=== PATIENT | male | born 1940 | race Caucasian/White ===

== ENCOUNTER 2018-08-03 09:18 | Inpatient (IN) ==
[2018-08-03] MEDS ORDERED: TORADOL IM ONE (10:31)
[2018-08-03] MEDS ORDERED: ZOFRAN IM ONE (10:31)
--- NOTE | 2018-08-03 11:13 | Diag Imaging Result Doc PS360 ---
CHEST-PORTABLE - 08/03/2018 INDICATION: A FIB,RVR COMPARISON: None FINDINGS: There is mild cardiomegaly. Pulmonary vascularity is top normal. There is some trace hazy atelectasis or infiltrate at the left lower lobe. Otherwise no substantial infiltrates. No sign of pulmonary edema. IMPRESSION: Cardiomegaly. Trace patchy atelectasis or infiltrate in the left lower lobe. Electronically signed by Gaurang Hurd 08/03/2018 11:11 AM
[2018-08-03 11:19] LABS: BASO# 0.03 X1000 (0.0-0.2); BASO% 0.1 % (0.0-0.8); HEMOGLOBIN 12.4 g/dL (14.0-18.0); IMM GRAN% 0.4 % (0.0-0.5); LYMPH# 0.91 X1000 (1.2-3.4); LYMPH% 3.6 % (20.5-51.1); MCH 30.9 PG (27-31); MCHC 32.6 g/dL (33-37); MCV 94.8 FL (81-99); MONO# 2.09 X1000 (0.11-0.59); MONO% 8.3 % (1.7-9.3); MPV 8.8 FL (7.4-10.4); NEUT# 22.12 X1000 (1.4-6.5); NEUT% 87.6 % (42.2-75.2); PLT 336 X1000 (130-400); RBC 4.01 XMIL (4.7-6.1); RDW 14.5 % (11.5-14.5); WBC 25.25 X1000 (4.8-10.8)
[2018-08-03 11:50] LABS: AGAP 5; BUN 25 mg/dL (8-22); CALCIUM 9.8 mg/dL (8.8-10.2); CHLORIDE 99 mmol/L (98-107); COSMO 279; CREATININE 0.8 mg/dL (0.7-1.2); ESTIMATED GFR > 60; GLUCOSE 111 mg/dL (70-104); POTASSIUM 4.3 mmol/L (3.5-5.1); SODIUM 137 mmol/L (136-145); TCO2 33 mmol/L (25-35)
--- NOTE | 2018-08-03 11:53 | EKG Report ---
Test Performed on : 08/03/2018 11:33:56 AM Test Reason : AFIB WITH RVR Blood Pressure : / mmHG Vent. Rate : 137 BPM Atrial Rate : 159 BPM P-R Int : 000 ms QRS Dur : 122 ms QT Int : 316 ms P-R-T Axes : 000 -49 106 degrees QTc Int : 477 ms Atrial fibrillation. with rapid ventricular response. Left axis deviation Possible Lateral infarct , age undetermined Inferior infarct , age undetermined Abnormal ECG No previous ECGs available Unconfirmed Result
[2018-08-03] MEDS ORDERED: ZITHROMAX 500 MG/NS 500 MG/250 ML IVPB IV ONE (11:56)
[2018-08-03] MEDS ORDERED: NS 1,000 ML IV ONE ×3 (11:56→22:30)
[2018-08-03] MEDS ORDERED: ROCEPHIN 1 GM in NS 50 ML IV ONE (11:56)
[2018-08-03] MEDS ORDERED: NS 1,000 ML ONE (11:57)
[2018-08-03] MEDS ORDERED: TYLENOL PO ONE (12:01)
[2018-08-03 12:06] LABS: ALB/GLOB RATIO 1.7; ALBUMIN 3.8 g/dL (3.5-5.0); DIRECT BILIRUBIN 0.2 mg/dL (0.00-0.20); TOTAL BILIRUBIN 0.85 mg/dL (0.20-1.00)
[2018-08-03] MEDS ORDERED: ZOFRAN IV PRN (12:41)
--- NOTE | 2018-08-03 12:55 | PROVIDER DOCUMENTATION ---
This chart was entered by Sabi Randolph Scribe, acting as scribe for Hamilton Llanes MD. HPI-Musculoskeletal Pain/Inj - GENERAL Chief Complaint: Back Pain Stated Complaint: back pain Time Seen by Provider: 08/03/18 10:30 Source: patient - HX OF PRESENT ILLNESS-MUSKULOSKELTAL Nature of Presenting Problem: Patient is a 78 year old male who presents to the ED via EMS with right lower back pain. Patient states back pain started last night. Patient states chronic left lower back pain. Patient states he is currently in physical therapy for chronic left lower back pain. Patient denies recent injury. Quality of Pain: reports: aching Severity in ED: moderate Onset/Duration: last night Timing: still present Modifying Factors: improves with: nothing Any recent injury?: No Locality of Occurance: Home Similar Symptoms Previously?: Yes Recently seen or treated by another doctor?: No - BACK & NECK PAIN/INJURY Back/Neck Pain Location: reports: lumbar spine (right) Back/Neck Pain Radiation: denies: headache, shoulders, arm(s), Buttocks, Upper Legs, Lower Legs, Feet Context / Method of Injury: reports: unknown History of Chronic Neck or Back Pain?: Yes Review of Systems - Adult - REVIEW OF SYSTEMS - ADULT Constitutional: reports: no symptoms reported Eyes: reports: no symptoms reported Ears, Nose, Mouth & Throat: reports: no symptoms reported Cardiovascular: reports: no symptoms reported Respiratory: reports: no symptoms reported Gastrointestinal: reports: no symptoms reported Genitourinary: reports: no symptoms reported Musculoskeletal: reports: back pain (right lower). denies: joint pain, neck pain Integumentary: reports: no symptoms reported Neurological: reports: no symptoms reported Psychiatric: reports: no symptoms reported Endocrine: reports: no symptoms reported Hematologic/Lymphatic: reports: no symptoms reported Allergic/Immunologic: reports: no symptoms reported All Other Systems: Reviewed and Negative Past History - Adult - PAST MEDICAL HISTORY-ADULT Review of Records: reports: Nursing Assessment Review, Medications Reviewed, Social history reviewed & non-contributory. Major Childhood Illnesses: reports: denies history Cardiovascular: reports: A-Fib, HTN Respiratory: reports: denies history Gastrointestinal: reports: denies history Obstetrical/Gynecological: reports: denies history Genitourinary: reports: prostate cancer Musculoskeletal: reports: denies history Neurological: reports: denies history Psychiatric: reports: denies history Endocrine/Immune: reports: denies history Other Conditions: reports: denies history - PRIOR SURGERIES/PROCEDURES Surgical/Procedure History: reports: reviewed, not pertinent - IMMUNIZATION STATUS Childhood Immunizations: See Nurse Assessment Flu Vaccine: See Nurse Assessment - FAMILY HISTORY Family History: reviewed, not pertinent - SOCIAL HISTORY Smoking: denies Substance Use: alcohol Alcohol Use Frequency: occasionally Living Situation: family Physical Exam-Injury Related - Physical Exam-Injury Related Initial Vital Signs Reviewed: Yes General Appearance: alert, mild distress Head, Ears, Nose, Mouth & Throat: normal ENT inspection Neck: non-tender, normal inspection Respiratory: chest non-tender, lungs clear, normal breath sounds Cardiovascular: normal peripheral pulses, tachycardia, irregularly irregular Abdominal Exam: normal bowel sounds, non tender, soft Back Exam: no vertebral tenderness, other (right lumbar paraspinal muscle tenderness) Extremity: other (bilateral SLR within normal range. difficulty lifting left leg due to pain. unable to left right leg on request due to pain. flexion and extension within normal range bilaterally.) Integumentary: normal color, warm/dry Neurologic: grossly normal Psych/Mental Status: normal mood/affect, oriented x 3 Progress - PLAN OF CARE/RESULTS Progress/Plan/Lab Results: Vital Signs - 8 hr 08/03/18 09:26 08/03/18 11:23 Temperature 99.2 F 99 F Pulse Rate 116 H 144 H Respiratory Rate 18 20 Blood Pressure 108/68 89/64 O2 Sat by Pulse Oximetry 96 93 L Laboratory Results - last 24 hr 08/03/18 08/03/18 08/03/18 11:01 11:01 11:01 WBC 25.25 H RBC 4.01 L Hgb 12.4 L Hct 38.0 L MCV 94.8 MCH 30.9 MCHC 32.6 L RDW Std Deviation 14.5 Plt Count 336 MPV 8.8 Immature Gran % (Auto) 0.4 Neut % (Auto) 87.6 H Lymph % (Auto) 3.6 L Stark % (Auto) 8.3 Eos % (Auto) 0.0 Baso % (Auto) 0.1 Immature Gran # (Auto) 0.10 H Neut # (Auto) 22.12 H Lymph # (Auto) 0.91 L Stark # (Auto) 2.09 H Eos # (Auto) 0.00 Baso # (Auto) 0.03 Sodium 137 Potassium 4.3 Chloride 99 Carbon Dioxide 33 Anion Gap 5 BUN 25 H Creatinine 0.8 Estimated GFR/1.73 m2 > 60 BUN/Creatinine Ratio 31 Glucose 111 H Calculated Osmolality 279 Calcium 9.8 Total Bilirubin Direct Bilirubin AST ALT Alkaline Phosphatase Troponin T Fwh-A-Sgvxjzlqgel Pept Total Protein Albumin Globulin Albumin/Globulin Ratio Plasma Lactate Free T4 0.95 08/03/18 08/03/18 08/03/18 11:01 11:01 11:01 WBC RBC Hgb Hct MCV MCH MCHC RDW Std Deviation Plt Count MPV Immature Gran % (Auto) Neut % (Auto) Lymph % (Auto) Stark % (Auto) Eos % (Auto) Baso % (Auto) Immature Gran # (Auto) Neut # (Auto) Lymph # (Auto) Stark # (Auto) Eos # (Auto) Baso # (Auto) Sodium Potassium Chloride Carbon Dioxide Anion Gap BUN Creatinine Estimated GFR/1.73 m2 BUN/Creatinine Ratio Glucose Calculated Osmolality Calcium Total Bilirubin 0.85 Direct Bilirubin 0.20 AST 23 ALT 15 Alkaline Phosphatase 69 Troponin T < 0.010 Qcc-Z-Ofvuyvrnytf Pept 2805 H Total Protein 6.0 L Albumin 3.8 Globulin 2.2 Albumin/Globulin Ratio 1.7 Plasma Lactate Free T4 08/03/18 11:50 WBC RBC Hgb Hct MCV MCH MCHC RDW Std Deviation Plt Count MPV Immature Gran % (Auto) Neut % (Auto) Lymph % (Auto) Stark % (Auto) Eos % (Auto) Baso % (Auto) Immature Gran # (Auto) Neut # (Auto) Lymph # (Auto) Stark # (Auto) Eos # (Auto) Baso # (Auto) Sodium Potassium Chloride Carbon Dioxide Anion Gap BUN Creatinine Estimated GFR/1.73 m2 BUN/Creatinine Ratio Glucose Calculated Osmolality Calcium Total Bilirubin Direct Bilirubin AST ALT Alkaline Phosphatase Troponin T Rle-P-Ibimwfmirdn Pept Total Protein Albumin Globulin Albumin/Globulin Ratio Plasma Lactate 0.9 Free T4 Orders Category Date Time Status Admit - [facility] Routine AdmDCTranf 08/03/18 12:41 Active Activity - Bed Rest with BRP ORDERED Care 08/03/18 12:41 Active Cardiac Monitoring DIRECTED Care 08/03/18 10:50 Completed Cardiac Monitoring DIRECTED Care 08/03/18 11:34 Completed Cardiac Monitoring DIRECTED Care 08/03/18 12:41 Active IV Insertion ORDERED Care 08/03/18 11:34 Completed IV Insertion ORDERED Care 08/03/18 12:41 Active Neurological Check Q4H Care 08/03/18 12:41 Active Notify MD of + Sepsis Screen NOW Care 08/03/18 11:34 Completed Notify MD of + Sepsis Screen NOW Care 08/03/18 12:41 Active Notify Physician As Ordered Care 08/03/18 11:34 Completed Notify Physician As Ordered Care 08/03/18 12:41 Active Saline Loc DIRECTED Care 08/03/18 12:41 Active Saline Loc NOW Care 08/03/18 10:50 Completed Vital Signs Order ROUTINE Care 08/03/18 12:41 Active Clear Liquid Diet Diet 08/03/18 12:42 Active CHEST-PORTABLE [RAD] Stat Exams 08/03/18 10:51 Completed BLOOD CULTURE [BLDCUL] Stat Lab 08/03/18 11:50 Received BLOOD CULTURE [BLDCUL] Stat Lab 08/03/18 12:41 Uncollected BMP [BASIC METABOLIC PANEL] [CHEM] Stat Lab 08/03/18 11:01 Completed CBC WITH DIFF [HEME] Stat Lab 08/03/18 12:41 Uncollected CBC WITH ELECTRONIC DIFF [HEME] Stat Lab 08/03/18 11:01 Completed CK PROFILE [SP CHEM] Stat Lab 08/03/18 12:41 Uncollected COMPREHENSIVE METABOLIC PANEL [CHEM] Stat Lab 08/03/18 12:41 Uncollected FREE T4 Stat Lab 08/03/18 11:01 Completed HEPATIC FUNCTION [CHEM] Stat Lab 08/03/18 11:01 Completed LACTATE, PLASMA [CHEM] Lab 08/03/18 11:50 Completed LACTATE, PLASMA [CHEM] Lab 08/03/18 12:41 Uncollected LACTATE, PLASMA [CHEM] Lab 08/03/18 14:45 Uncollected LACTATE, PLASMA [CHEM] Lab 08/03/18 15:41 Uncollected LACTATE, PLASMA [CHEM] Lab 08/03/18 17:45 Uncollected LACTATE, PLASMA [CHEM] Lab 08/03/18 18:41 Uncollected PRO B-NATRIURETIC PEPTIDE Stat Lab 08/03/18 11:01 Completed PROTIME WITH INR [COAG] Stat Lab 08/03/18 12:41 Uncollected PTT [COAG] Stat Lab 08/03/18 12:41 Uncollected TROPONIN T Stat Lab 08/03/18 11:01 Completed TROPONIN T Stat Lab 08/03/18 12:41 Uncollected URINALYSIS W/POSS RFLX CULT [URINALYSIS] Stat Lab 08/03/18 11:47 Ordered 0.9% Sodium Chloride Inj [Ns] 1,000 ml Med 08/03/18 11:57 Discontinued .ROUTE As Directed 0.9% Sodium Chloride Inj [Ns] 1,000 ml Med 08/03/18 12:41 Active IV 150 mls/hr 0.9% Sodium Chloride Inj [Ns] 1,000 ml Med 08/03/18 11:56 Active IV 999 mls/hr Acetaminophen [Tylenol] Med 08/03/18 12:01 Discontinued 500 mg PO NOW ONE Azithromycin 500 mg/Ns [Zithromax 500 mg/Ns] Med 08/03/18 11:56 Discontinued 500 mg in 250 ml IV NOW CefTRIAXONE [Rocephin] 1 gm Med 08/03/18 11:56 Discontinued 0.9% Sodium Chloride Inj [Ns] 50 ml IV NOW Ketorolac [Toradol] Med 08/03/18 10:31 Discontinued 30 mg IM NOW ONE Morphine Med 08/03/18 12:41 Active 2 mg IV Q2H PRN PRN Ondansetron [Zofran] Med 08/03/18 10:31 Discontinued 4 mg IM NOW ONE Ondansetron [Zofran] Med 08/03/18 12:41 Active 4 mg IV Q4H PRN PRN Oxygen Device Stat Oth 08/03/18 11:34 Active Oxygen Device Stat Oth 08/03/18 12:41 Active EKG [EKG] Stat Ther 08/03/18 11:26 Draft Transfer/Admit Order [TRANSFER] Routine Transfer 08/03/18 12:04 Completed Result Diagrams: 08/03/18 11:01 08/03/18 11:01 - REASSESSMENT Reassessment #1 Time Reassessed: 11:54 Status: unchanged (wbc 25K, POSSIBLE LEFT INFILTRATE. FAMILY TELLS ME PT IS AT HIS MENTAL /SPEECH BASELINE. BACK PAIN BETTER, NO MENINGISMUS.) Reassessment #2 Time Reassessed: 12:00 Status: unchanged (LIKLEY PNEUMONIA AND SEPSIS. FLUIDS AND ANTIBIOTICS ORDERED. ICU OR CCU DISCUSSED ADMISSION WITH DR ORTEGA.) - EKG 1 Time of EKG reading by physician:: 11:33 EKG Read and Signed by:: Hamilton Llanes EKG Interpretation (*Must complete 3 of following elements*): Abnormal ( inferior infarct, age undetermined) Rate: 137 Rhythm: atrial fibrillation with rapid ventricular response [place]: left Comments: possible lateral infarct, age undetermined; - XRAY 1 XRAY Study: Chest Impression: See EMR Report ( CHEST-PORTABLE - 08/03/2018 INDICATION: A FIB,RVR COMPARISON: None FINDINGS: There is mild cardiomegaly. Pulmonary vascularity is top normal. There is some trace hazy atelectasis or infiltrate at the left lower lobe. Otherwise no substantial infiltrates. No sign of pulmonary edema. IMPRESSION: Cardiomegaly. Trace patchy atelectasis or infiltrate in the left lower lobe. Electronically signed by Gaurang Hurd 11:11 AM 08/03/18 1111 Interpreting Physician: Gaurang Hurd MD Dictated Date/Time: 08/03/18 1110 cc: Hamilton Llanes MD; Rodrigo Welsh MD) - CONSULTS/PCP/HOSPITALIST Notification #1 *Consult/PCP/Hospitalist*: Dr. Welsh Time Discussed: 10:36 Reason/Comments: Dr. Llanes consulted with Dr. Welsh about patient. Departure - Departure Date of Disposition Decision: 08/03/18 Time of Disposition Decision: 11:55 DIAGNOSIS: Atrial fibrillation with RVR, Pneumonia, Sepsis, Back pain Disposition: ADMITTED INPATIENT 09 Certified Medical Emergency: Emergent Condition: Fair - Critical Care Note This patient required my direct & personal management of CC.: Yes Total Time (mins): 50 Critical Care Statement: This patient required my direct personal management to treat or rule out processes, the absence of which, could potentiallly result in sudden, clinically significant life or limb threatening deterioration. Attestation - Physician/ ANA LUISA Attestation Patient care was provided by Advanced Practice Provider:: No The physician spent face to face time with patient:: Yes Advanced Practice Provider documentation review:: Supervising physician onsite and consulted in the evaluation and care of this patient. The physician did have a face to face encounter with the patient. This chart was documented by the indicated scribe, (Agustín,Sabi, Scribe) and accurately reflects the services I performed and decisions made by me, Hamilton Llanes MD, as attested by the provider's signature.
[2018-08-03] MEDS: MORPHINE IV PRN ×2 (15:03→20:49)
--- NOTE | 2018-08-03 15:07 | Diag Imaging Result Doc PS360 ---
EXAM: CT THORAX/ABD/PELVIS W/O CON 08/03/2018 HISTORY: Leukocytosis/ possible pneumonia/ lower pelvic mirella TECHNIQUE: This exam was performed using automated exposure control, adjustment of mA or kV according to patient size, and/or use of iterative reconstruction technique. COMMENT: There are calcified and noncalcified pleural plaques in the apices. There are small bilateral pleural effusions. There is cardiomegaly with marked enlargement of the right and left atria. There are calcified nodes in the right hilum. There is coronary atherosclerosis. There is atelectasis versus pneumonia in the left lower lobe. There are some spondylotic changes in the thoracic spine. ABDOMEN: The spleen is not enlarged. The adrenal glands are not enlarged. There are no apparent gallstones. Liver is grossly normal in appearance. There is some stool throughout the colon. There is a 2 to 3 mm calculus in the lower pole the right kidney. There is a cyst in the right kidney. There is no evidence of hydronephrosis. There is no evidence of bowel obstruction. Pelvis: There is no evidence of appendicitis. The urinary bladder is not distended. There is no evidence of free fluid. There is a fairly large amount of gas in the rectum. There are degenerative facet changes at L4-5 and L5-S1. No evidence of acute bony abnormality is present. IMPRESSION: Left lower lobe atelectasis versus pneumonia. Small bilateral pleural effusions. Constipation. Electronically signed by John Bradshaw 08/03/2018 3:05 PM
[2018-08-03 18:00] LABS: URINE SOURCE CLEAN CATCH
[2018-08-03 18:05] LABS: BILIRUBIN URINE NEGATIVE (NEGATIVE); BLOOD URINE NEGATIVE (NEGATIVE); COLOR YELLOW; GLUCOSE URINE NEGATIVE (NEGATIVE); KETONE URINE NEGATIVE (NEGATIVE); LEUKOCYTES URINE NEGATIVE (NEGATIVE); NITRITE URINE NEGATIVE (NEGATIVE); PH URINE 6.5; PROTEIN URINE 30 mg/dL (NEGATIVE); SP GRAVITY URINE 1.028; TURBIDITY URINE CLEAR (CLEAR); UR EPITHELIAL CELLS <10 /HPF (<10); URINE BACTERIA NEGATIVE /HPF; URINE RBC <10 /HPF (<10); URINE WBC <10 /HPF (<10); UROBILINOGEN URINE NORMAL (NORMAL)
[2018-08-03] MEDS ORDERED: TYLENOL PO PRN (20:13)
[2018-08-03] MEDS ORDERED: NS NEB INH SCH (22:00)
[2018-08-03] MEDS ORDERED: ROCEPHIN 1 GM in NS 50 ML IV SCH (22:00)
[2018-08-03] MEDS ORDERED: LEVAQUIN 500 MG/D5W 500 MG/100 ML IVPB IV SCH (22:00)
[2018-08-03] MEDS: NS 1,000 ML IV SCH (22:04)
[2018-08-03] MEDS: ELIQUIS PO SCH (22:04)
[2018-08-03] MEDS: ATROVENT NEB INH SCH (22:43)
[2018-08-03] MEDS: XOPENEX NEB INH SCH (22:43)
[2018-08-03] MEDS ORDERED: VANCOMYCIN IV PER PHARMACY MISC SCH (23:30)
[2018-08-04] MEDS: ZOSYN 3.375 GM in NS 50 ML IV SCH ×3 (00:18→11:36)
[2018-08-04] MEDS ORDERED: VANCOMYCIN 1,600 MG in NS 250 ML IV ONE (01:00)
--- NOTE | 2018-08-04 02:51 | HISTORY AND PHYSICAL ---
PRIMARY CARE PHYSICIAN: Dr. Rodrigo Welsh. CHIEF COMPLAINT: Intractable low back pain. HISTORY OF PRESENT ILLNESS: A 78-year-old white male with a complicated past medical history, presents for evaluation of above-mentioned symptoms. Pertinent history of present illness began several months ago. At that time, patient developed increasing back pain. Full evaluation including MRI investigation and neurosurgical consultation has been pursued. The patient currently is undergoing physical therapy. Lumbar spine surgery has been considered. The patient states yesterday, he was doing reasonably well. Yesterday evening, however, he developed acute onset intractable right low back pain. Patient ultimately achieved comfort resting in a chair. This morning, he awoke unable to ambulate. The patient was able to crawl to the phone to contact his sister. Upon contacting her, EMS was called. The patient was taken to the emergency department for further evaluation and management. Upon arrival, white blood cell count was noted to be grossly elevated at 25.25. Chest x-ray was performed suggesting an underlying pneumonia. EKG/telemetry suggested atrial fibrillation with rapid ventricular response. Patient was started on IV antibiotics and IV fluids. The patient will be admitted to the hospital for full evaluation and management of each of these conditions. Of note, patient denies fevers, chills, nausea, vomiting, shortness of breath, chest pain, cough, congestion, dysuria, hematuria, pyuria, abdominal pain, and change in bowel movements. PAST MEDICAL HISTORY: 1. Abnormal skin examination with multiple actinic keratoses, seborrheic keratoses, dermatitis, and history of squamous cell carcinoma. 2. Hypertension. 3. History of a right inguinal hernia. 4. Hypothyroidism. 5. Chronic anticoagulation secondary to atrial fibrillation. 6. Low back pain. 7. History of prostate cancer status post prostatectomy in October 2010. 8. Osteoarthritis. 9. Atrial fibrillation. 10. History of colonic polyps. CURRENT MEDICATIONS: 1. Biotin 1000 mcg twice weekly. 2. Celebrex 200 mg daily as needed. 3. Diltiazem ER 240 mg twice daily. 4. Eliquis 5 mg twice daily. 5. Fish oil 1000 mg daily. 6. Gabapentin 300 mg, 1 to 2 tablets 3 times daily as needed. 7. Lisinopril/hydrochlorothiazide 20/25 daily. 8. Multivitamin twice weekly, on Sundays and Wednesdays. 9. Tramadol 50 mg 3 times daily. 10. Vitamin C 1000 mg daily. ALLERGIES: Patient answered no known drug allergies. SOCIAL HISTORY: The patient denies tobacco or illicit drug use. He has approximately 5 drinks per week. He is retired from [employer]. He enjoys yard work and fishing. He exercises by walking and lifting weights. FAMILY HISTORY: Patient's father passed at age 86 secondary to complications of congestive heart failure and hypertension. Patient's mother passed at age 77 secondary to complications of congestive heart failure/ischemic heart disease. REVIEW OF SYSTEMS: A 12-point review of systems was performed. Pertinent positives and negatives are noted in history present illness. PHYSICAL EXAMINATION: VITAL SIGNS: Temperature 99.2 degrees, heart rate 116, respirations 18, blood pressure is 108/68. GENERAL: Well-nourished, well-developed, no acute distress. HEENT: Normocephalic, atraumatic. Pupils equal, round, reactive to light. Extraocular muscles intact. Sclerae anicteric. [place] conjunctivae. Oral and nasopharynx clear without exudate. NECK: Supple. No lymphadenopathy. No thyromegaly. No bruits auscultated. CARDIOVASCULAR: Irregularly irregular. Slightly tachycardic. No significant murmurs, rubs, or gallops. PULMONARY: Clear to auscultation bilaterally. ABDOMEN: Soft, nontender, nondistended. Positive bowel sounds. EXTREMITIES: Moves all extremities well. No significant clubbing, cyanosis, or edema. NEUROLOGIC: Cranial nerves 2-12 grossly intact. Motor and sensory grossly intact. PSYCHOLOGIC: Appropriate. LABORATORY DATA: White blood cell count 25.25, hemoglobin 12.4, hematocrit 38.0, platelet count 336,000. Sodium 137, potassium 4.3, chloride 99, bicarb 33, BUN 25, creatinine 0.8. Glucose 111, calcium 9.8, total bilirubin 0.85, total protein 6.0, albumin 3.8, alkaline phosphatase 69, AST 23, ALT 15. Urinalysis revealed mild protein. CT scan of the thorax, abdomen and pelvis revealed left lower lobe atelectasis versus pneumonia. Small bilateral pleural effusions. Constipation. ASSESSMENT AND PLAN: A 78-year-old white male with a complicated past medical history, presents for evaluation of intractable low back pain. Interestingly, patient was found to have a significant leukocytosis and underlying pneumonia. Patient will be admitted to the hospital for full evaluation and management of each of these conditions. 1. Admit to ICU. 2. Community-acquired pneumonia -- in the setting of a significant elevation in white blood cell count and atrial fibrillation with rapid ventricular response, I do feel aggressive intervention is warranted. The patient has been provided Rocephin and azithromycin while in the emergency department. We will broaden coverage to include Rocephin and levofloxacin therapy. We will check blood cultures and sputum cultures, if able. We will start incentive spirometry and Xopenex/Atrovent. We will follow patient's clinical course closely. 3. Atrial fibrillation with rapid ventricular response -- at this point, I suspect this is reactive from his underlying acute illness. With aggressive hydration and antibiotic treatment, his heart rate has improved. At this point, we will continue supportive care. We will plan to resume diltiazem once able per acceptable blood pressure. 4. Intractable low back pain -- this is quite curious. Patient does have intractable pain at baseline. He did experience a true exacerbation. The question is raised whether this is a primary exacerbation or if this is secondary to his acute illness. We will treat as described above. We will determine if further intervention is necessary depending on his response. We will plan to initiate physical therapy in the a.m. 5. Hypertension -- patient's blood pressure is marginal at present time. We will hold his diltiazem, lisinopril, and hydrochlorothiazide therapy. We will reinitiate these medications once blood pressure is acceptable. 6. Long-term anticoagulation -- we will continue Eliquis therapy. 7. Fluid, electrolytes, nutrition -- we will monitor electrolytes. Normal saline at 75 mL/h. Cardiac prudent diet. 8. Prophylaxis -- patient will be continued on Eliquis therapy. cc: Rodrigo Welsh MD
[2018-08-04] MEDS: ATROVENT NEB INH SCH ×6 (03:30→23:36)
[2018-08-04] MEDS: XOPENEX NEB INH SCH ×6 (03:35→23:36)
[2018-08-04 05:36] LABS: BASO# 0.03 X1000 (0.0-0.2); BASO% 0.1 % (0.0-0.8); HEMATOCRIT 35.3 % (42.0-52.0); HEMOGLOBIN 11.3 g/dL (14.0-18.0); IMM GRAN# 0.07 X1000 (0.0-0.04); IMM GRAN% 0.3 % (0.0-0.5); LYMPH% 6.5 % (20.5-51.1); MCV 96.7 FL (81-99); MONO# 1.56 X1000 (0.11-0.59); MONO% 7.2 % (1.7-9.3); MPV 9.1 FL (7.4-10.4); NEUT# 18.58 X1000 (1.4-6.5); NEUT% 85.9 % (42.2-75.2); PLT 265 X1000 (130-400); RBC 3.65 XMIL (4.7-6.1); RDW 14.9 % (11.5-14.5); WBC 21.64 X1000 (4.8-10.8)
[2018-08-04] MEDS: MORPHINE IV PRN ×6 (06:03→21:53)
[2018-08-04 06:06] LABS: AGAP 10; ALB/GLOB RATIO 1.1; ALKALINE PHOSPHATASE 62 U/L (32-122); BUN 29 mg/dL (8-22); CALCIUM 8.2 mg/dL (8.8-10.2); CHLORIDE 102 mmol/L (98-107); COSMO 275; CREATININE 0.9 mg/dL (0.7-1.2); ESTIMATED GFR > 60; GLUCOSE 108 mg/dL (70-104); GOT 27 U/L (10-34); GPT 19 U/L (10-44); POTASSIUM 4.3 mmol/L (3.5-5.1); SODIUM 134 mmol/L (136-145); TCO2 22 mmol/L (25-35); TOTAL BILIRUBIN 0.81 mg/dL (0.20-1.00); TOTAL PROTEIN 5.7 g/dL (6.3-8.3)
[2018-08-04 07:18] LABS: BASO 2 % (0-1); LYMPHS 2 % (21-51); MONO 10 % (1-9); SEGS 86 % (42-75)
[2018-08-04] MEDS: ELIQUIS PO SCH ×2 (08:32→20:32)
[2018-08-04] MEDS: ASPIRIN EC PO SCH (08:32)
[2018-08-04] MEDS: TYLENOL PO PRN ×2 (10:33→18:01)
[2018-08-04] MEDS: NS 1,000 ML IV SCH (11:36)
[2018-08-04] MEDS ORDERED: LOPRESSOR IV PRN (16:32)
[2018-08-04] MEDS: NAFCIL 2 GM in NS 100 ML IV SCH ×2 (17:08→22:55)
[2018-08-04] MEDS ORDERED: CARDIZEM IV ONE (18:16)
[2018-08-04] MEDS: CARDIZEM 125 MG in NS 100 ML IV SCH (18:26)
--- NOTE | 2018-08-04 19:58 | INFECTIOUS DISEASE CONSULT REP ---
DATE: 08/04/2018 CONCLUSION: The patient is admitted to the hospital with what appears to be a Staph aureus bacteremia. The exact origin of the bacteremia is uncertain. He does have back pain which is chronic on the left side and just started with this present illness on the right side, but on CT scan on the back area, the only degenerative facet changes were seen in L4-5 and L5-S1. Therefore it does not look like he has osteomyelitis as a source of the bacteremia. The patient's CT scan of the chest did show a left lower lobe atelectasis versus pneumonia. If it were pneumonia, that could be a source of the bacteremia. 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 RECOMMENDATIONS: I agree with treating with vancomycin until we are certain that the patient does not have methicillin-resistant Staph aureus. I have discontinued Zosyn and Levaquin and have added nafcillin and as mentioned above, I would like to continue with vancomycin until we are sure that the patient does not have methicillin-resistant Staph aureus. DISCUSSION: The patient in the past day has developed fever and low back pain on the right side. He does have chronic left-sided back pain but this back pain he tells me is different. He is not coughing. He does not have dysuria. Laboratory study shows that he has 2 blood cultures positive for gram-positive coccus, which looks to be Staph aureus. The patient's CBC initially showed a white count of 25,250 and today the white count is down to 21,640. The patient's hemoglobin is 11.3 and platelet count is 265,000. The patient's creatinine is 0.9. GFR is greater than 60. Liver function studies are normal. The patient's urinalysis is negative for white cells and bacteria. PAST MEDICAL HISTORY/REVIEW OF SYSTEMS: Eyes and ears: He denies trouble hearing or seeing. Neck: No stiffness. Respiratory: No cough or wheezing. Cardiac: No chest pain or palpitations. : No dysuria or flank pain. GI: No nausea, vomiting, or diarrhea. Bones, joints, muscles: As mentioned earlier, the patient does have chronic back pain on the left side. Integument: No rashes. Neurologic: No seizures and no recent loss of motor or sensory function. PREVIOUS HOSPITALIZATIONS AND OPERATIONS: He has had surgery for prostate cancer using the robot. MEDICAL DISEASES: Positive for prostate cancer, hypertension, and atrial fibrillation. INFECTIOUS DISEASE HISTORY: Negative for pneumonia and UTI. FAMILY HISTORY: Positive for hypertension and myocardial infarction. SOCIAL HISTORY: [place] He is a . He has a dog as a pet. He is retired from working for [employer]. ALLERGIES: He has no known drug allergies. HOME MEDICATIONS: Include Tylenol, Eliquis, aspirin, diltiazem, lisinopril/hydrochlorothiazide, meloxicam, fish oil, and tramadol. PHYSICAL EXAMINATION: Vital Signs: Temperature is 100 degrees, pulse 112, respirations 24, blood pressure 113/63. The patient is 5 feet 8 inches tall, weighs 143 pounds. General: This is a healthy-appearing, elderly male. He is in no acute distress. Head/eyes/ears/nose/throat: He can hear my spoken words and see near objects. He does not have any white patches on his tongue. There is no drainage from the nose or ears. Neck: No meningismus. Thorax: No increased AP diameter. Back: The low back area is not swollen or tender. Lungs: Clear to auscultation. Cardiovascular: Heart rate initially when I was listening to him appeared to be regular but after a few minutes it became irregular. Abdomen: Soft and nontender. Neurologic: Patient is alert. He can move his extremities. He does not have a tremor. His sensation is intact to touch. His memory as regarding his medical history is intact. Thank you for the consult. cc: MD Rodrigo Adair MD
--- NOTE | 2018-08-04 22:39 | PROGRESS NOTE ---
DATE: 08/04/2018 SUBJECTIVE: The patient was admitted yesterday with suspected community-acquired pneumonia. Blood cultures were drawn. Blood cultures returned positive overnight. Antibiotic intervention was broadened to include levofloxacin, Zosyn, and vancomycin therapy. This morning, patient was noted to have some improvement in his overall condition. His blood pressure, however, remains marginal. Throughout the day, blood pressure remained marginal. His energy level, however, did demonstrate improvement. Upon my arrival this evening, patient was noted to have an elevation in his heart rate. Within 2 hours prior to my arrival, he had developed atrial fibrillation with rapid ventricular response. He had been treated with one dose of metoprolol. This proved transient. The patient currently complains of a chill, but no fevers. His energy level remains low. His p.o. intake is moderate. OBJECTIVE: T-max 99.9 degrees, heart rate 97 to 145, respirations 17 to 27, blood pressure 108 to 134/58 to 83.General: Well nourished, well developed, no acute distress. Cardiovascular: Tachycardic, irregularly irregular. No significant murmurs, rubs, or gallops. Pulmonary: Clear to auscultation bilaterally. Abdomen: Soft, nontender, nondistended. Positive bowel sounds. Extremities: Moves all extremities well. No significant clubbing, cyanosis, or edema. Dermatologic: Evaluation reveals no evidence of rash. LABORATORY DATA: White blood cell count 21.64, hemoglobin 11.3, hematocrit 35.3, platelet count 265,000, sodium 134, potassium 3.4, chloride 102, bicarb 22, BUN 29, creatinine 0.9, glucose 108, calcium 8.2, total bilirubin 0.89, total protein 5.7, albumin 3.0, alkaline phosphatase 62, AST 27, ALT 19. ASSESSMENT AND PLAN: 1. Pneumonia-at this point, the etiology is somewhat curious. Blood cultures, thus far, suggestive of gram-positive cocci, possibly staph. I consulted Dr. Ely this morning. Antibiotic adjustments have been made. We will follow up on blood cultures to confirm antibiotic choices are appropriate. 2. Bacteremia/sepsis-as above, blood cultures returned positive overnight. He was treated with broad-spectrum antibiotics. With the preliminary suggestion of staff, antibiotic intervention has been adjusted. I appreciate Dr. Ely' consultation. 3. Atrial fibrillation with rapid ventricular response-as the patient's blood pressure has demonstrated recovery, we will start a Cardizem drip. We will continue IV fluids as well. 4. Intractable low back pain-patient continues to have significant pain. He is being treated with as-needed morphine. We will plan to initiate physical therapy once he is able. 5. Hypertension-patient's lisinopril, oral diltiazem, and hydrochlorothiazide have been held. As described above, diltiazem IV will be initiated. We will follow this. 6. Long-term anticoagulation-we will continue Eliquis therapy. 7. Disposition-at this point, patient continues to require detention care in a hospital setting. We will plan discharge home once appropriate. cc: Rodrigo Welsh MD
[2018-08-05] MEDS: NS 1,000 ML IV SCH ×2 (00:57→14:01)
[2018-08-05] MEDS ORDERED: VANCOMYCIN 1 GM/NS 1 GM/250 ML IVPB IV SCH (01:00)
[2018-08-05] MEDS: MORPHINE IV PRN ×6 (01:11→16:13)
[2018-08-05] MEDS: CARDIZEM 125 MG in NS 100 ML IV SCH ×2 (04:58→16:14)
[2018-08-05] MEDS: NAFCIL 2 GM in NS 100 ML IV SCH ×4 (04:58→23:20)
[2018-08-05 05:24] LABS: BASO# 0.02 X1000 (0.0-0.2); BASO% 0.1 % (0.0-0.8); EOS# 0.01 X1000 (0.0-0.7); EOS% 0.1 % (0.0-10.0); HEMATOCRIT 37.7 % (42.0-52.0); HEMOGLOBIN 12.3 g/dL (14.0-18.0); IMM GRAN# 0.06 X1000 (0.0-0.04); IMM GRAN% 0.4 % (0.0-0.5); LYMPH# 0.67 X1000 (1.2-3.4); LYMPH% 4.3 % (20.5-51.1); MCH 31.4 PG (27-31); MCHC 32.6 g/dL (33-37); MCV 96.2 FL (81-99); MONO# 1.25 X1000 (0.11-0.59); MONO% 7.9 % (1.7-9.3); NEUT# 13.75 X1000 (1.4-6.5); NEUT% 87.2 % (42.2-75.2); PLT 281 X1000 (130-400); RBC 3.92 XMIL (4.7-6.1); RDW 14.7 % (11.5-14.5); WBC 15.76 X1000 (4.8-10.8)
[2018-08-05] MEDS: XOPENEX NEB INH SCH ×6 (05:42→23:24)
[2018-08-05] MEDS: ATROVENT NEB INH SCH ×6 (05:42→23:24)
[2018-08-05 05:49] LABS: AGAP 10; ALB/GLOB RATIO 1.1; ALBUMIN 3.2 g/dL (3.5-5.0); ALKALINE PHOSPHATASE 67 U/L (32-122); BUN 19 mg/dL (8-22); CALCIUM 8.7 mg/dL (8.8-10.2); CHLORIDE 104 mmol/L (98-107); COSMO 277; CREATININE 0.8 mg/dL (0.7-1.2); ESTIMATED GFR > 60; GLUCOSE 121 mg/dL (70-104); GOT 24 U/L (10-34); GPT 18 U/L (10-44); POTASSIUM 3.9 mmol/L (3.5-5.1); SODIUM 137 mmol/L (136-145); TCO2 23 mmol/L (25-35); TOTAL BILIRUBIN 0.46 mg/dL (0.20-1.00); TOTAL PROTEIN 6.2 g/dL (6.3-8.3)
[2018-08-05] MEDS: TYLENOL PO PRN ×2 (06:40→16:12)
[2018-08-05] MEDS: ELIQUIS PO SCH ×2 (09:23→19:59)
[2018-08-05] MEDS: ASPIRIN EC PO SCH (09:23)
[2018-08-05] MEDS: CARDIZEM CD PO SCH ×2 (12:36→19:59)
--- NOTE | 2018-08-05 13:08 | Diag Imaging Result Doc PS360 ---
EXAM: CHEST-PORTABLE HISTORY: Pneumonia TECHNIQUE: Portable chest single view COMPARISON: 08/03/2018 FINDINGS: Poor inspiratory effort. The heart is enlarged. There are increased interstitial markings in the lung bases. Tiny pleural effusions are present bilaterally. There is apical pleural plaques. IMPRESSION: Cardiomegaly with basilar atelectasis and possibly underlying infiltrates. Electronically signed by Garrett Majano 08/05/2018 1:06 PM
--- NOTE | 2018-08-05 15:21 | PROGRESS NOTE ---
DATE: 08/05/2018 SUBJECTIVE: Over the course of the last 24 hours, the patient has had some fluctuation in his overall condition. Yesterday evening, upon my arrival, the patient was noted to have atrial fibrillation with rapid ventricular response. The patient noted feeling very poorly with intermittent rigors. The patient was started on a Cardizem drip, as his blood pressure has improved from admission. The patient tolerated this well. The patient was continued on antibiotics. His rigors have improved but not completely resolved. This morning, the patient states he is feeling much improved. Heart rate at the present time is 91 on Cardizem drip. The patient's p.o. intake is marginal but improving. He continues to require oxygen to maintain adequate saturations. His energy level remains very low. He denies fevers or chills at the present time. OBJECTIVE: T-max is 100.7, heart rate 86 to 102, respirations 17 to 27, blood pressure 104 to 118 over 59 to 73. General: Well nourished, well developed, no acute distress. Cardiovascular: Irregularly irregular, intermittently tachycardic. No significant murmurs, rubs or gallops. Pulmonary: Crackles at the left base. Abdomen: Soft, nontender and nondistended. Positive bowel sounds. Extremities: Moves all extremities well. No significant cyanosis, clubbing or edema. Dermatologic: No evidence of rash. DIAGNOSTIC DATA: White blood cell count is 15.76, hemoglobin 12.3, hematocrit 37.7, platelet count is 281,000. Sodium is 137, potassium 3.9, chloride 104, bicarb 23, BUN is 19, creatinine 0.9, glucose 121, calcium 8.7. Total bilirubin 0.46, total protein 6.2, albumin 3.2, alkaline phosphatase 67, AST is 24, ALT is 18. ASSESSMENT AND PLAN: 1. Suspected pneumonia. A CT scan confirmed pneumonia versus atelectasis. The question is raised whether this is the primary source of his underlying MSSA bacteremia. At this point, we will treat this as such. The patient's antibiotics will be arranged per Dr. Ely. We will continue oxygen therapy per protocol. We will also continue bronchodilators. 2. Bacteremia/sepsis. As described, the patient's blood cultures have grown methicillin-sensitive Staphylococcus aureus. We will defer antibiotic intervention to Dr. Ely. We will plan to check an echocardiogram on Tuesday. I would like to discuss further the possibility of back etiology including diskitis or abscess with Dr. Ely. We will consider whether an MRI of the lumbar spine is appropriate, especially in the setting of new back pain. 3. Atrial fibrillation with rapid ventricular response. The patient currently is being treated with a Cardizem drip. We will transition the patient from IV Cardizem to oral today. We will follow this as well. We will continue Eliquis therapy. 4. Intractable low back pain. The patient has chronic low back pain. Prior to admission, the patient noted a new characteristic and site of back pain. With treatment and antibiotics, the patient is achieving some improvement. We will continue his current regimen. We will consider whether an MRI is appropriate on Tuesday. 5. Hypertension. At home, the patient is treated with lisinopril, oral diltiazem, and hydrochlorothiazide therapy. As above, we will transition the patient from IV to oral Cardizem. We will follow this. 6. detention anticoagulation. We will continue the patient on Eliquis therapy. 7. Profound weakness. Once the patient feels he is able, I would like to initiate physical therapy. The patient is at risk for significant deconditioning with his acute illness. We will consider whether rehabilitation is appropriate at discharge. DISPOSITION: At this point, the patient continues to require snf care in the hospital setting. We will plan discharge home or to rehab once appropriate. cc: Rodrigo Welsh MD
[2018-08-05] MEDS: NORCO-7.5 PO PRN ×2 (19:50→23:50)
[2018-08-06] MEDS: ATROVENT NEB INH SCH ×6 (03:36→23:33)
[2018-08-06] MEDS: XOPENEX NEB INH SCH ×6 (03:36→23:34)
[2018-08-06] MEDS: NORCO-7.5 PO PRN ×5 (04:50→21:52)
[2018-08-06] MEDS: NAFCIL 2 GM in NS 100 ML IV SCH ×4 (04:50→19:53)
[2018-08-06] MEDS: NS 1,000 ML IV SCH (04:58)
[2018-08-06 06:06] LABS: BASO# 0.02 X1000 (0.0-0.2); BASO% 0.2 % (0.0-0.8); EOS# 0.13 X1000 (0.0-0.7); EOS% 1.1 % (0.0-10.0); HEMATOCRIT 34.1 % (42.0-52.0); IMM GRAN# 0.04 X1000 (0.0-0.04); IMM GRAN% 0.3 % (0.0-0.5); LYMPH# 0.71 X1000 (1.2-3.4); LYMPH% 6.2 % (20.5-51.1); MCH 30.7 PG (27-31); MCHC 32.3 g/dL (33-37); MCV 95.3 FL (81-99); MONO# 1.05 X1000 (0.11-0.59); MONO% 9.1 % (1.7-9.3); MPV 9.1 FL (7.4-10.4); NEUT# 9.54 X1000 (1.4-6.5); NEUT% 83.1 % (42.2-75.2); PLT 270 X1000 (130-400); RBC 3.58 XMIL (4.7-6.1); RDW 14.8 % (11.5-14.5); WBC 11.49 X1000 (4.8-10.8)
[2018-08-06 06:38] LABS: AGAP 10; ALBUMIN 2.9 g/dL (3.5-5.0); ALKALINE PHOSPHATASE 64 U/L (32-122); BUN 16 mg/dL (8-22); CALCIUM 8.5 mg/dL (8.8-10.2); CHLORIDE 103 mmol/L (98-107); COSMO 275; CREATININE 0.7 mg/dL (0.7-1.2); ESTIMATED GFR > 60; GLUCOSE 105 mg/dL (70-104); GOT 16 U/L (10-34); GPT 16 U/L (10-44); POTASSIUM 3.1 mmol/L (3.5-5.1); SODIUM 137 mmol/L (136-145); TCO2 24 mmol/L (25-35); TOTAL BILIRUBIN 0.55 mg/dL (0.20-1.00); TOTAL PROTEIN 5.7 g/dL (6.3-8.3)
[2018-08-06] MEDS: ELIQUIS PO SCH ×3 (08:56→20:59)
[2018-08-06] MEDS: ASPIRIN EC PO SCH (08:56)
[2018-08-06] MEDS: CARDIZEM CD PO SCH ×3 (08:56→20:59)
[2018-08-06] MEDS ORDERED: NS 1,000 ML IV SCH (09:15)
[2018-08-06] MEDS ORDERED: KLOR-CON PO ONE (09:27)
[2018-08-06] MEDS ORDERED: MIRALAX PO ONE (09:28)
[2018-08-06] MEDS: TYLENOL PO PRN (13:36)
--- NOTE | 2018-08-06 13:44 | PROGRESS NOTE ---
DATE: 08/06/2018 SUBJECTIVE: Over the course of the last 24 hours, patient has shown a gradual improvement in his clinical condition. The patient was transitioned from IV diltiazem to oral Cardizem over the course of the last 24 hours. The patient has tolerated this well. Telemetry, interestingly, has demonstrated intermittent burst with a nonspecific conduction delay and intermittent PVCs. He remains asymptomatic. The patient's energy level is very slowly improving. His p.o. intake remains marginal at best. He denies fevers, chills, nausea, vomiting, or shortness of breath. He continues to require oxygen to maintain adequate saturations. OBJECTIVE: T-max 98.4, heart rate 66 to 119, respirations 14 to 24, blood pressure 119 to 135 over 66 to 79.General: Well nourished, well developed, no acute distress. Cardiovascular: Irregularly irregular. No significant murmurs, rubs, or gallops. Pulmonary: Clear to auscultation bilaterally. Abdomen: Soft, nontender, nondistended. Positive bowel sounds. Extremities: Moves all extremities well. No significant clubbing, cyanosis, or edema. Dermatologic: Evaluation reveals no evidence of rash. LABORATORY DATA: White blood cell count 11.49 hemoglobin 11.0, hematocrit 34.1, platelet count 270,000. Sodium 137, potassium 3.1, chloride 103, bicarb 24, BUN 16, creatinine 0.7, glucose 105, calcium 8.5, magnesium 1.8, total bilirubin 0.55, total protein 5.7, albumin 2.9, alkaline phosphatase 64, AST 16, ALT 16. ASSESSMENT AND PLAN: 1. Suspected pneumonia-this was noted per chest x-ray and CT scan. We will continue treatment for the possibility of underlying MSSA pneumonia in the setting of bacteremia. We will continue oxygen per protocol and bronchodilators. 2. Bacteremia/sepsis-clinically, patient is demonstrating improvement. We will defer antibiotic intervention to Dr. Ely. Surveillance cultures have been drawn this morning. If no definitive source of patient's bacteremia is identified, we will need to consider whether MRI of the back to rule out underlying diskitis is appropriate. We will plan an echocardiogram in the a.m. 3. Atrial fibrillation with rapid ventricular response-the patient was transitioned back to his home Cardizem regimen from intravenous Cardizem. As above, patient is having frequent ectopy. We will continue to follow with telemetry. 4. Intractable low back pain-patient was noted to have an acute exacerbation of his chronic low back pain upon admission. Symptoms are reasonably stable at present time. 5. Hypertension. Patient's blood pressure is reasonably controlled with diltiazem therapy. If necessary, we will resume his lisinopril and hydrochlorothiazide while hospitalized. 6. Long-term anticoagulation-we will continue Eliquis therapy. 7. Profound weakness-physical therapy has been ordered. We will encourage patient up in chair. The patient may require rehabilitation at time of discharge. 8. Disposition-at this point, patient continues to require custodial care in a hospital setting. We will plan discharge home once appropriate. cc: Rodrigo Welsh MD
[2018-08-06] MEDS ORDERED: GAMUNEX-C 10% IV ONE (17:00)
--- NOTE | 2018-08-06 18:45 | INFECTIOUS DISEASE PROGRESS NO ---
DATE: 08/06/2018 PRESENT ILLNESS: The patient has an oxacillin-sensitive Staphylococcus aureus bacteremia. This could have arisen from a possible left lower lobe pneumonia caused by Staphylococcus aureus as well. Today, the patient's immunoglobulin levels came back, and his IgG level is low at 493. I think it is possible that because of the low IgG level that made the patient more susceptible to pneumonia, and he developed a Staphylococcus aureus pneumonia, and from that he became bacteremic. MEDICATIONS: The patient is on nafcillin. Yesterday, I discontinued vancomycin when I found out that the patient's organism was oxacillin sensitive. I have increased the dose of nafcillin to 2 g IV every 4 hours. The patient is receiving now nafcillin 2 g IV every 4 hours, and tonight, he will receive an infusion of immunoglobulin 10%, 20 g. PHYSICAL EXAMINATION: Vital Signs: Temperature is 99.5 degrees, pulse 129, respirations 17, blood pressure 138/63. General: The patient looks ill, but he is in no acute distress. Head eyes, ears, nose, and throat: He can hear my spoken words and see near objects. He does not have any white patches on his tongue. Neck: No meningismus. Lungs: Clear to auscultation. Cardiovascular: Heart rate is irregular. I did not hear a murmur. Abdomen: Soft and nontender. Neurologic: The patient is alert. He can move his extremities. There is no tremor. Integument: No rash noted. DIAGNOSTIC STUDIES: There is no new radiographic study. Patient's CBC today shows a white count of 11,490, hemoglobin of 11, and platelet count of 270,000. His creatinine is 0.7, GFR is greater than 60. Liver function studies are normal. IgG is low at 493, IgA is normal at 150. Repeat blood cultures were drawn this morning, and they are pending. ASSESSMENT AND PLAN: The patient has an oxacillin-sensitive Staphylococcus aureus bacteremia which could have arisen from a pneumonia. The patient, by having a low IgG level, could have developed a pneumonia, and specifically in this situation, an oxacillin-sensitive Staphylococcus aureus pneumonia. My plan is to continue nafcillin and increase the dose to 2 g IV every 4 hours. Also, I have ordered for tomorrow an echocardiogram to see if the patient has vegetations around his heart valves. I have also ordered an infusion of immunoglobulin tonight. I plan and probably will wait at least 6 weeks before repeating the patient's immunoglobulin levels, and if the IgG is low again, then the patient may be a candidate to have monthly IVIG. PATIENT'S COMORBIDITIES: 1. He is elderly. 2. Possibly he has developed an immunoglobulin deficiency which made him more likely to become infected, in this case with an oxacillin-sensitive Staphylococcus aureus pneumonia, which then developed into a bacteremia. cc: MD Rodrigo Adair MD
[2018-08-07] MEDS: NAFCIL 2 GM in NS 100 ML IV SCH ×7 (00:30→23:53)
[2018-08-07] MEDS: ATROVENT NEB INH SCH ×6 (03:19→23:14)
[2018-08-07] MEDS: XOPENEX NEB INH SCH ×6 (03:19→23:14)
[2018-08-07] MEDS: NORCO-7.5 PO PRN ×5 (03:57→23:53)
[2018-08-07 05:52] LABS: BASO# 0.03 X1000 (0.0-0.2); BASO% 0.3 % (0.0-0.8); HEMATOCRIT 32.9 % (42.0-52.0); HEMOGLOBIN 10.8 g/dL (14.0-18.0); IMM GRAN# 0.05 X1000 (0.0-0.04); IMM GRAN% 0.5 % (0.0-0.5); LYMPH# 0.58 X1000 (1.2-3.4); LYMPH% 5.9 % (20.5-51.1); MCH 31.7 PG (27-31); MCHC 32.8 g/dL (33-37); MCV 96.5 FL (81-99); MONO# 1.21 X1000 (0.11-0.59); MONO% 12.4 % (1.7-9.3); MPV 9.3 FL (7.4-10.4); NEUT# 7.71 X1000 (1.4-6.5); NEUT% 78.9 % (42.2-75.2); PLT 293 X1000 (130-400); RBC 3.41 XMIL (4.7-6.1); RDW 14.9 % (11.5-14.5); WBC 9.78 X1000 (4.8-10.8)
[2018-08-07 06:06] LABS: AGAP 10; ALB/GLOB RATIO 0.8; ALBUMIN 2.6 g/dL (3.5-5.0); ALKALINE PHOSPHATASE 69 U/L (32-122); BUN 16 mg/dL (8-22); CALCIUM 8.4 mg/dL (8.8-10.2); CHLORIDE 107 mmol/L (98-107); COSMO 283; CREATININE 0.7 mg/dL (0.7-1.2); ESTIMATED GFR > 60; GLUCOSE 106 mg/dL (70-104); GOT 15 U/L (10-34); GPT 14 U/L (10-44); POTASSIUM 3.5 mmol/L (3.5-5.1); SODIUM 141 mmol/L (136-145); TCO2 24 mmol/L (25-35); TOTAL BILIRUBIN 0.64 mg/dL (0.20-1.00); TOTAL PROTEIN 5.9 g/dL (6.3-8.3)
--- NOTE | 2018-08-07 07:12 | INFECTIOUS DISEASE PROGRESS NO ---
DATE: 08/07/2018 HISTORY OF PRESENT ILLNESS: The patient has an oxacillin sensitive Staph aureus pneumonia and associated bacteremia. He is predisposed to developing this by virtue of having an immunoglobulin deficiency, namely his IgG level was 493. The patient today seems to be developing oral candidiasis. The patient has an immunoglobulin deficiency. MEDICATIONS: The patient is on nafcillin. I have increased the dose to 2 g IV every 4 hours. I am going to add Mycostatin because the patient appears to be developing oral candidiasis. PHYSICAL EXAMINATION: Vital Signs: Temperature is 98.5 degrees, pulse 112, respirations 15, blood pressure 147/66. General: This is an ill-appearing elderly male. He is in no acute distress. Head, eyes, ears, nose, and throat: The patient has some white coating of his tongue. He can hear my spoken words and see near objects. Neck: No meningismus. Lungs : Clear to auscultation. Cardiovascular: Heart rate is irregular. I did not hear a murmur. Abdomen: Soft and nontender. Neurologic: Patient was sleeping but he woke up and he is fully alert. He can move his extremities. There is no tremor. Integument: No rash. LABORATORY: Today's lab shows a CBC with a white count of 9780, hemoglobin 10.8 , and platelet count 293,000. Creatinine is 0.7. Liver function studies are normal. Repeat blood cultures are pending. ASSESSMENT AND PLAN: The patient as mentioned above, has an oxacillin sensitive Staph aureus pneumonia from which he became bacteremic and this most likely occurred because the patient has a low IgG level. My plan is to continue nafcillin. He is going to have an echocardiogram today, to look for any vegetations on the valves. The patient has an immunoglobulin deficiency, and last night he received an infusion of IVIG. The patient is developing oral candidiasis and I am going to start him on Mycostatin swish and swallow. COMORBIDITIES: The patient is elderly and he appears to have an immunoglobulin deficiency. cc: MD Rodrigo Adair MD MTDD
[2018-08-07] MEDS: CARDIZEM CD PO SCH ×3 (08:33→20:10)
[2018-08-07] MEDS: ELIQUIS PO SCH ×3 (08:33→20:10)
[2018-08-07] MEDS: MYCOSTATIN SUSP PO SCH ×5 (08:33→20:10)
[2018-08-07] MEDS: ASPIRIN EC PO SCH (08:33)
[2018-08-07] MEDS ORDERED: MIRALAX PO SCH (09:53)
--- NOTE | 2018-08-07 09:59 | EKG Report ---
Test Performed on : 08/06/2018 03:15:34 AM Test Reason : ICU. No order in [place] Blood Pressure : / mmHG Vent. Rate : 089 BPM Atrial Rate : 102 BPM P-R Int : 000 ms QRS Dur : 086 ms QT Int : 344 ms P-R-T Axes : 000 -23 -06 degrees QTc Int : 418 ms Atrial fibrillation. with premature ventricular or aberrantly conducted complexes. Abnormal ECG When compared with ECG of 06-AUG-2018 03:14, (Unconfirmed) No significant change was found Confirmed by Juliette CUEVAS, Bj Ferrell ([id number]) on 08/07/2018 9:13:10 PM
--- NOTE | 2018-08-07 15:34 | ECHO REPORT ---
ORDER DATE: 08/07/2018 2D ECHOCARDIOGRAM: 1. Interventricular septum 1.1, left ventricular posterior wall 1.0, left ventricular diastolic diameter 3.9, left atrium 4, aorta 2.7. Technically suboptimal study. Normal left ventricular cavity size. Estimated ejection fraction of 50%. Mitral valve leaflets are normal. There is mitral annular calcification. Tricuspid valve was normal. Aortic valve leaflets are trileaflet. Pulmonic valve was normal. 2. Right ventricle was dilated with reduced right ventricular systolic function. 3. There is severe right atrial enlargement. 4. There is left atrial enlargement. 5. There is moderate to severe tricuspid regurgitation. Peak velocity across the tricuspid valve was 3.3 m/sec. Pulmonary artery systolic pressure of 54 mmHg. There is mild mitral regurgitation. Peak velocity across the aortic valve less than 2 m/sec. By Doppler studies there is no aortic stenosis or regurgitation. 6. There is no pericardial effusion or obvious intracardiac mass or thrombus seen. cc: MD Ming Benson MD Scott A. Matthews, MD
[2018-08-07] MEDS: MIRALAX PO SCH ×2 (19:50→20:10)
[2018-08-08] MEDS: XOPENEX NEB INH SCH ×6 (03:34→23:09)
[2018-08-08] MEDS: ATROVENT NEB INH SCH ×6 (03:34→23:09)
[2018-08-08] MEDS: NAFCIL 2 GM in NS 100 ML IV SCH ×5 (04:05→20:00)
--- NOTE | 2018-08-08 04:30 | PROGRESS NOTE ---
DATE: 08/07/2018 SUBJECTIVE: Overall, the patient continues to very slowly improve from a clinical standpoint. His energy level is low, but improving. His p.o. intake remains marginal. The patient denies fevers, chills, nausea, vomiting, or chest discomfort. He has noted a significant increase in lower extremity edema over the course of the last 24 hours. OBJECTIVE: Vital Signs: T-max 98.6 degrees, heart rate 92-111, respirations 16-19, blood pressure 119-148/66-79. General: Well nourished, well developed, no acute distress. Cardiovascular: Tachycardic. Irregularly irregular. Pulmonary: Crackles at bilateral bases. Abdomen: Soft, nontender, nondistended. Positive bowel sounds. Extremities: Moves all extremities well. No significant clubbing, cyanosis, or edema. Dermatologic: Evaluation reveals no overt evidence of rash. LABORATORY DATA: White blood cell count 9.78, hemoglobin 10.8, hematocrit 32.9, platelet count is 293,000. Sodium 141, potassium 3.5, chloride 107, bicarbonate 24, BUN 16, creatinine 0.7, glucose 106, calcium 8.4, total bilirubin 0.64, total protein 5.9, albumin 2.6, alkaline phosphatase 69, AST 15, ALT 14. ASSESSMENT AND PLAN: 1. Suspected pneumonia - this was diagnosed per chest x-ray and CT scan. The patient does have some underlying hypoxia. We will continue oxygen per protocol. We will continue antibiotics per Dr. Ely. 2. Bacteremia/sepsis - clinically, the patient is demonstrating significant improvement. We will continue antibiotics per Dr. Ely. Repeat cultures have been drawn. One of 2 bottles are again positive for gram-positive cocci. We will follow this up and determine if this is the same pathogen. If so, we will need to consider additional sources. 3. Atrial fibrillation with a rapid ventricular response - the patient has been transitioned to Cardizem per oral. We will continue to follow this clinically. 4. Intractable low back pain - the patient has achieved stabilization while hospitalized. We will remain aware that this could be in the source of infection. 5. Hypertension - blood pressure is reasonably controlled with diltiazem alone. We will continue to hold lisinopril and hydrochlorothiazide. 6. Long-term anticoagulation - we will continue the patient on Eliquis therapy. 7. Profound weakness - physical therapy has been initiated. We will continue this and consider whether rehabilitation is appropriate at discharge. 8. Disposition - at this point, the patient continues to require group home care in a hospital setting. We will plan discharge home once appropriate. cc: Rodrigo Welsh MD
[2018-08-08] MEDS: NORCO-7.5 PO PRN ×3 (04:52→19:05)
[2018-08-08] MEDS ORDERED: MIRALAX PO SCH (08:23)
[2018-08-08] MEDS ORDERED: LASIX PO ONE (08:23)
[2018-08-08] MEDS: CARDIZEM CD PO SCH ×2 (08:34→20:00)
[2018-08-08] MEDS: ASPIRIN EC PO SCH (08:34)
[2018-08-08] MEDS: ELIQUIS PO SCH ×2 (08:34→20:00)
[2018-08-08] MEDS: MYCOSTATIN SUSP PO SCH ×4 (08:35→20:00)
[2018-08-08] MEDS ORDERED: PERICOLACE PO SCH (09:00)
--- NOTE | 2018-08-08 11:27 | INFECTIOUS DISEASE PROGRESS NO ---
DATE: 08/08/2018 PRESENT ILLNESS: The patient has an oxacillin sensitive Staph aureus pneumonia with an associated bacteremia. 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 The patient also has oral candidiasis. MEDICATIONS: The patient is on nafcillin. He had repeat blood cultures drawn earlier and one of the cultures is positive for gram-positive cocci, which will probably be the same Staph aureus that we cultured earlier. I think it would be reasonable, however, to wait and repeat the blood cultures because I have increased the nafcillin dose from every 6 hours to every 4 hours. PHYSICAL EXAMINATION: Vital Signs: Temperature is 98.8 degrees, pulse 112, respirations 17, blood pressure 128/51. General: This is an ill-appearing elderly male. He is in no acute distress. Head/eyes/ears/nose/throat: He can hear my spoken words and see near objects. There is not any more white coating on his tongue. Neck: No stiffness. Lungs: Clear to auscultation. Cardiovascular: Heart rate is rapid and irregular. Abdomen: Soft and nontender. Neurologic: The patient is awake. He is weak. He has no tremor. Integument: No rash. LABORATORY/RADIOLOGY: The patient's echocardiogram did not show any vegetations and it appeared to be a good study in that the valves were viewed well. Because of that, I do not think the patient will require a transesophageal echocardiogram. ASSESSMENT AND PLAN: 1. The patient has Staph aureus pneumonia with an associated bacteremia. I am going to continue nafcillin and wait another day and repeat his blood cultures. As regarding his immunoglobulin deficiency, he has already had a dose of IVIG. I will wait 6 to 8 weeks and then repeat the IgG level. As regarding oral candidiasis, I am going to keep going with nystatin swish and swallow. I am going to leave it now for 4 times a day but probably I can cut down later to 3 times a day or maybe even twice a day. I do not think I will stop it because if we do I think the thrush will come back because the patient is going to be on high-dose antibiotics, namely nafcillin. When the patient leaves, it may be very difficult to get a rehab facility to take him because his IV is going to be for him to get nafcillin every 4 hours and most of the rehab place is only patient's that are getting the antibiotic every 24 hours or every 12 hours. 2. Comorbidities: He is elderly and he has an immunoglobulin deficiency. cc: MD Rodrigo Adair MD MTDD
[2018-08-08] MEDS ORDERED: LASIX IV ONE (11:47)
--- NOTE | 2018-08-08 12:20 | CARDIOLOGY CONSULTATION ---
DATE: 08/08/2018 DIAGNOSIS: Pneumonia. REASON FOR CONSULTATION: The patient has atrial fibrillation. Cardiology was consulted for rate control and consideration of transesophageal echocardiogram. HISTORY OF PRESENT ILLNESS: The patient is a 78-year-old gentleman who has noticed increasing shortness of breath. He was admitted with SIRS with a diagnosis of pneumonia and bacteremia. He also had complained of having low back pain and CT scan was done of the abdomen and chest, which revealed pneumonia. However, there was no other infective pathology noted in the abdomen or chest. There was no pulmonary embolism. As far as symptoms are concerned. The patient has had chronic atrial fibrillation. He has coronary calcification with no obstructive coronary artery disease. Denies chest pain suggestive of angina. Of late, since admission, he has noticed increasing palpitations. However, he does not perceive any palpitations or atrial fibrillation. He has not felt any in the past. There is no dizziness or syncope. A 14-point review of system was done. REVIEW OF SYSTEMS: GI System: There is no history of nausea, vomiting, or diarrhea. There is no history of hematemesis or melena. Central nervous system: No focal weakness to suggest a CVA or TIA. system: There is no dysuria or hematuria. PAST MEDICAL HISTORY: 1. Chronic atrial fibrillation. 2. On anticoagulation therapy. 3. Coronary calcification with cardiac catheterization in 2017 revealed no obstructive coronary artery disease. 4. History of colonic polyps. 5. Osteoarthritis. 6. History of prostate cancer, status post prostatectomy on October 2010. 7. Hypertension. HOME MEDICATIONS: 1. Celebrex 200 as needed. 2. Diltiazem extended release 240 b.i.d. 3. Eliquis 5 b.i.d. 4. Gabapentin 300 mg 1 to 2 tablets as needed. 5. Lisinopril-hydrochlorothiazide 20-25. 6. Tramadol 50. 7. Multivitamins. 8. His current medications as far as antibiotics are concerned, he is on nafcillin and nystatin suspension for oral candidiasis. PHYSICAL EXAMINATION: Vital Signs: Blood pressure was 124/75. Cardiovascular: Irregular heartbeat noted. There was systolic murmur. Respiratory System: Examination revealed some decreased breath sounds. Abdomen: Soft, nontender. There was no guarding or rigidity. Mildly distended. Bowel sounds heard. Extremities: Revealed pitting pedal edema bilateral. LABORATORY EXAMINATION: Sodium 141, potassium 3.5, BUN 16, creatinine 0.7. WBC when he was admitted was 25.25, today 9.78. Hemoglobin 10.8, hematocrit 32.9, platelet count of 293,000. ASSESSMENT AND PLAN: Mr. Tim Cain is a 78-year-old gentleman with history of hypertension, chronic atrial fibrillation, coronary calcification, no significant obstructive coronary artery disease, who was admitted with increasing shortness of breath, has pneumonia, bacteremia. His echocardiogram revealed dilated right ventricle with a moderate tricuspid regurgitation. Please see detailed echocardiogram report. There was no obvious vegetation noted. I had a detailed discussion with the patient and family. 1. I would recommend a transesophageal echocardiogram to rule out endocarditis and also we will make sure there is no other etiology to account for elevated and dilated right ventricular systolic pressure and dilatation of the right ventricle with moderate tricuspid regurgitation. 2. He may have sleep apnea to account for the right-sided features noted on the echocardiogram. Maybe this would be beneficial to evaluate for sleep studies as an outpatient. 3. As far as atrial fibrillation is concerned, his rate has been well controlled with Cardizem CD 240 b.i.d. In the hospital, his rate jumps up to 140. It may be secondary to pneumonia as well. Regardless, in the interim, we will also add digoxin 0.125 mg to his medical regimen for rate control. 4. He has had increasing pedal edema and input and output are positive significantly over the last couple of days. Given this, I will give him an extra dose of injection Lasix 40 mg now with potassium supplements. 5. Pneumonia. Continue with the antibiotics as planned. 6. He has oral thrush as well. Continue with Nystatin as planned. Thank you for the consult. We will follow hospital course. cc: MD Rodrigo Benson MD
[2018-08-08] MEDS: LANOXIN PO SCH (12:41)
[2018-08-08] MEDS ORDERED: MIRALAX PO PRN (18:40)
[2018-08-08] MEDS ORDERED: PERICOLACE PO PRN (18:40)
[2018-08-08] MEDS ORDERED: CALMOSEPTINE OINTMENT TOP PRN (18:59)
--- NOTE | 2018-08-08 19:31 | PROGRESS NOTE ---
DATE: 08/08/2018 SUBJECTIVE: This morning, patient was initially evaluated. At that time, patient noted increasing lower extremity edema, as well as continued fatigue. He complained of mild abdominal discomfort, associated with constipation. The patient was continued on MiraLAX therapy. Senna S was provided. Additionally, Lasix therapy was given. This evening, patient states he feels much improved. He has had several bowel movements. His volume status has improved. Also today, Cardiology was consulted secondary to atrial fibrillation with rapid ventricular response and for further evaluation for possible vegetations associated with endocarditis. Digoxin therapy was added to his regimen. Transesophageal echocardiogram was scheduled. The patient's heart rate has improved, although not to goal. This evening, patient is sitting upright in bed. He notes feeling reasonably well. He denies fevers, chills, nausea, vomiting, shortness of breath, or chest discomfort. OBJECTIVE: VITAL SIGNS: T-max 98.9, heart rate, 95 to 118, respirations 17-18, blood pressure 124-138 over 58-75. General: Well nourished, well developed, no acute distress. Cardiovascular: Irregularly irregular. Not tachycardic. Pulmonary: Crackles bilateral bases. Abdomen: Soft, nontender, nondistended. Positive bowel sounds. Extremities: Moves all extremities well. No significant clubbing or cyanosis. 1 to 2+ lower extremity edema bilaterally. Dermatologic: Evaluation reveals no evidence of rash. LABORATORY DATA: White blood cell count 9.78, hemoglobin 10.8, hematocrit 32.9, platelet count 293,000. Sodium 140, potassium 3.5, chloride 107, bicarb 24, BUN 16, creatinine 0.7, glucose 106, calcium 8.4. Total bilirubin 0.64. Total protein 5.9, albumin 2.6, alkaline phosphatase 69, AST 15, ALT 14. ASSESSMENT AND PLAN: 1. Suspected pneumonia-the patient was diagnosed upon admission with chest x-ray and confirmed per CT scan. Question is raised as to possible staph associated pneumonia. At this point, this is the only potential source for his underlying bacteremia. We will continue antibiotics per Dr. Ely. Overall, his clinical condition is improving. 2. Bacteremia/sepsis-patient has achieved significant improvement clinically. Repeat blood cultures have been drawn. Unfortunately, there does appear to be a positive culture with gram- positive cocci. We should know the definitive organism tomorrow. If indeed this is again Staph aureus, we will need to consider additional sources. As above, we will plan transesophageal echocardiogram tomorrow. 3. Atrial fibrillation with rapid ventricular response-I appreciate Dr. Salmeron's consultation. We will continue Cardizem. Digoxin was added. We will monitor patient on telemetry. 4. Intractable low back pain-patient has achieved improvement while hospitalized. We will continue physical therapy. 5. Hypertension. Patient's blood pressure is reasonably controlled with diltiazem therapy. We will plan to resume lisinopril/hydrochlorothiazide when necessary. 6. Long-term anticoagulation-we will continue Eliquis therapy. 7. Profound weakness-this is a consequence of his acute illness. We will continue to encourage activity. Physical therapy has been consulted. Patient likely will require home health with physical therapy or rehabilitation at discharge. 8. Disposition-at this point, patient continues to require detention care in a hospital setting. We will plan discharge home once appropriate. cc: Rodrigo Welsh MD
[2018-08-09] MEDS: NAFCIL 2 GM in NS 100 ML IV SCH ×5 (00:29→20:50)
[2018-08-09] MEDS: ATROVENT NEB INH SCH ×6 (03:21→23:00)
[2018-08-09] MEDS: XOPENEX NEB INH SCH ×6 (03:21→23:00)
[2018-08-09 05:16] LABS: BASO# 0.04 X1000 (0.0-0.2); BASO% 0.5 % (0.0-0.8); EOS# 0.21 X1000 (0.0-0.7); EOS% 2.8 % (0.0-10.0); HEMATOCRIT 33.4 % (42.0-52.0); IMM GRAN# 0.11 X1000 (0.0-0.04); IMM GRAN% 1.5 % (0.0-0.5); LYMPH# 0.82 X1000 (1.2-3.4); LYMPH% 10.9 % (20.5-51.1); MCH 31.4 PG (27-31); MCHC 32.9 g/dL (33-37); MCV 95.4 FL (81-99); MONO% 15.9 % (1.7-9.3); MPV 9.1 FL (7.4-10.4); NEUT# 5.16 X1000 (1.4-6.5); NEUT% 68.4 % (42.2-75.2); PLT 369 X1000 (130-400); RDW 14.7 % (11.5-14.5); WBC 7.54 X1000 (4.8-10.8)
[2018-08-09 06:10] LABS: AGAP 14; BUN 12 mg/dL (8-22); CALCIUM 8.4 mg/dL (8.8-10.2); COSMO 282; CREATININE 0.7 mg/dL (0.7-1.2); ESTIMATED GFR > 60; GLUCOSE 114 mg/dL (70-104); SODIUM 141 mmol/L (136-145); TCO2 27 mmol/L (25-35)
[2018-08-09 06:26] LABS: CHLORIDE 100 mmol/L (98-107); POTASSIUM 2.4 mmol/L (3.5-5.1)
[2018-08-09] MEDS ORDERED: KLOR-CON PO ONE (06:26)
[2018-08-09] MEDS: ASPIRIN EC PO SCH (08:16)
[2018-08-09] MEDS: CARDIZEM CD PO SCH ×2 (08:16→20:50)
[2018-08-09] MEDS: MYCOSTATIN SUSP PO SCH ×4 (08:16→20:50)
[2018-08-09] MEDS: LANOXIN PO SCH (08:16)
[2018-08-09] MEDS: ELIQUIS PO SCH ×2 (08:17→20:50)
--- NOTE | 2018-08-09 08:38 | INFECTIOUS DISEASE PROGRESS NO ---
DATE: 08/09/2018 PRESENT ILLNESS: The patient has an oxacillin-sensitive Staph aureus pneumonia with an associated bacteremia. He is predisposed to this occurring because he has an immunoglobulin deficiency. The patient also has oral candidiasis. He may well have endocarditis as well. MEDICATIONS: The patient is on nafcillin 2 g IV every 4 hours. He also is getting Mycostatin swish and swallow for his oral candidiasis. The patient already has received an immunoglobulin infusion to bring up the IgG level into the normal range. PHYSICAL EXAMINATION: Vital Signs: Temperature 98.8 degrees, pulse 113, respirations 22, blood pressure 128/65. General: This is an ill-appearing, elderly male. He is in no acute distress. Head, Eyes, Ears, Nose, Throat: He can hear my spoken words and see near objects. He does not have any white patches on his tongue. Neck: No meningismus. Lungs: Clear to auscultation. Cardiovascular: Heart rate is rapid and irregular. Abdomen: Soft and not tender. Neurologic: The patient is awake. He can move his extremities. There is no tremor. Integument: No rash noted. LAB AND RADIOLOGY: CBC today shows a white count of 7540, hemoglobin 11, and platelet count of 369,000. The patient's creatinine is 0.7. GFR is greater than 60. ASSESSMENT AND PLAN: The patient has Staphylococcus aureus bacteremia and pneumonia. The patient is going to have a transesophageal echocardiogram to look for the possibility of endocarditis as well. The patient's last blood cultures showed that 1 of the 2 sets of blood cultures drawn was negative and the other one had gram-positive cocci. If it turns out that the gram-positive cocci are Staphylococcus aureus, then I will go ahead and repeat the patient's blood cultures today because he has been on nafcillin at a higher dose and I think most likely the repeat cultures will not be positive. If the blood culture turns out to be a coagulase-negative staphylococcus, then that would be a contaminant and does not require treatment, and I would not repeat the patient's blood cultures. As regarding the patient's immunoglobulin deficiency, he has received an infusion in the hospital. In another 6 to 8 weeks, I will repeat his immunoglobulin levels and if IgG is low again, then I think the patient would qualify to have monthly infusions of immunoglobulin. COMORBIDITIES: He is elderly and he has an immunoglobulin deficiency. cc: MD Rodrigo Adair MD
--- NOTE | 2018-08-09 08:40 | Diag Imaging Result Doc PS360 ---
EXAM: CHEST-1 VIEW HISTORY: pneumonia TECHNIQUE: Chest single view COMPARISON: 08/05/2018 FINDINGS: The lungs are well expanded except for basilar atelectasis. There are small pleural effusions. The heart remains enlarged. There are calcified apical pleural plaques. The overall appearance of the chest is similar to the prior exam. IMPRESSION: No interval improvement. Electronically signed by Garrett Majano 08/09/2018 8:37 AM
[2018-08-09 10:19] LABS: INR 1.37; PROTIME 17.9 Seconds (11.0-16.0)
[2018-08-09] MEDS: POTASSIUM CHLORIDE 20 MEQ/SWI 20 MEQ/100 ML IVPB IV SCH ×2 (10:40→13:18)
[2018-08-09] MEDS ORDERED: NS 500 ML ONE ×2 (10:51→13:38)
[2018-08-09] MEDS ORDERED: SODIUM CHLORIDE 0.9% 20 ML ONE (12:13)
[2018-08-09] MEDS ORDERED: XYLOCAINE 2% VISCOUS ONE (12:14)
[2018-08-09] MEDS ORDERED: DIPRIVAN 1% ONE (12:16)
[2018-08-09] MEDS ORDERED: XYLOCAINE-MPF 1% 5 ML ONE (12:16)
--- NOTE | 2018-08-09 13:16 | CARDIOLOGY PROGRESS NOTE ---
DATE: 08/09/2018 SUBJECTIVE: Mr. Cain reports some palpitations. He has not had any pain complaints. PHYSICAL EXAMINATION: Vital Signs: The patient is afebrile. Heart rate of 124, blood pressure 131/50. General: No acute distress. Cardiovascular: He sounds to be in an irregularly irregular rhythm. Somewhat tachycardic. He has no murmurs. He has no S3. No lower extremity edema. Chest: Examination has some coarse breath sounds more diffusely. No increased work of breathing. Talking comfortably in complete sentences. Abdomen: Soft, nontender. PERTINENT DATA: Sodium was 141, potassium was 2.4. This has been repleted. BUN 12, creatinine 0.7. His white count is 7.5, hematocrit 33, platelet count is 369,000. He had a chest x-ray done today that shows small pleural effusions, cardiomegaly, calcified apical pleural plaques. Otherwise no significant changes. ASSESSMENT: Mr. Cain is a 78-year-old gentleman with a presumed staphylococcus pneumonia. He had an echocardiogram performed on the showing a borderline normal ejection fraction, severe right atrial enlargement, dilated right ventricle. PLAN: We will proceed with a transesophageal echocardiogram to evaluate for possible endocarditis as well as evaluate his right heart structures. He was noted to have an enlarged right atrium and right ventricle on a previous study in June of 2015. We will perform a bubble study during the procedure, most likely to evaluate for any shunting. cc: MD Rodrigo Herrera MD
[2018-08-09] MEDS ORDERED: LOPRESSOR IV PRN (13:25)
[2018-08-09] MEDS ORDERED: LASIX IV ONE (14:13)
[2018-08-09 14:29] LABS: AGAP 10; BUN 11 mg/dL (8-22); CALCIUM 8.6 mg/dL (8.8-10.2); CHLORIDE 100 mmol/L (98-107); COSMO 277; CREATININE 0.7 mg/dL (0.7-1.2); ESTIMATED GFR > 60; GLUCOSE 102 mg/dL (70-104); POTASSIUM 3.6 mmol/L (3.5-5.1); SODIUM 139 mmol/L (136-145); TCO2 29 mmol/L (25-35)
--- NOTE | 2018-08-09 20:24 | PROGRESS NOTE ---
DATE: 08/09/2018 SUBJECTIVE: This morning, patient states he rested reasonably well. He was prepared for transesophageal echocardiogram today. The patient was taken mid morning. Patient tolerated the procedure quite well. No evidence of vegetations were identified. The patient was noted to have a dilated right atrium. Consideration for obstructive sleep apnea was recommended. This afternoon, patient states he feels reasonably well. His energy level remains low, but is slowly improving. His p.o. intake also remains marginal. He denies fevers, chills, nausea, vomiting, shortness of breath, or chest discomfort. OBJECTIVE: Vital Signs: T-max 98.5, heart rate 96-124, respirations 16-18, blood pressure 122- 143 over 50-83. General: No acute distress. Cardiovascular: Irregularly irregular. Slightly tachycardic. No significant murmurs, rubs, or gallops. Pulmonary: Crackles at bilateral bases. Abdomen: Soft, nontender, nondistended. Positive bowel sounds. Extremities: Moves all extremities well. No significant clubbing, cyanosis, or edema. Dermatologic: Evaluation reveals no evidence of rash. LABORATORY DATA: White blood cell count 7.54, hemoglobin 11.0, hematocrit 33.4, platelet count 369,000. PT 17.9, INR is 1.37, PTT is 37.0. Sodium 139, potassium 3.6, chloride 100, bicarb 29, BUN 11, creatinine 0.7, glucose 102, calcium 8.6. ASSESSMENT AND PLAN: 1. Suspected pneumonia-this was diagnosed per chest x-ray and confirmed per CT scan upon admission. At this point, working diagnosis is staph aureus pneumonia. We will continue antibiotics per Dr. Ely. 2. Bacteremia/sepsis. One of 2 bottles from the surveillance cultures returned positive. We await final identification. For now, we will continue antibiotics per Dr. Ely. Clinically, patient is demonstrating improvement. White blood cell count and temperature have normalized. 3. Atrial fibrillation with rapid ventricular response-I appreciate Dr. Salmeron and Dr. Hsieh's consultation. Heart rate is slowly improving. We will continue his current regimen. 4. Intractable low back pain-symptoms have stabilized while hospitalized. We will continue physical therapy. 5. Hypertension-blood pressure is reasonably controlled on his current regimen. We will continue to hold his home dose of lisinopril and hydrochlorothiazide as he does not require this to maintain adequate pressures at present time. 6. Long-term anticoagulation-we will continue Eliquis therapy. 7. Profound weakness-we will continue physical therapy. Patient likely will require home health versus rehabilitation at discharge. 8. Volume overload-this is a consequence of his aggressive volume resuscitation in the setting of sepsis. We will again diurese today. 9. Hypokalemia-patient was repleted with potassium supplementation. DISPOSITION: At this point, patient continues to require care home care in a hospital setting. We will plan discharge home once appropriate. cc: Rodrigo Welsh MD
[2018-08-10] MEDS: NAFCIL 2 GM in NS 100 ML IV SCH ×6 (01:02→21:04)
[2018-08-10] MEDS: ATROVENT NEB INH SCH ×6 (03:40→22:58)
[2018-08-10] MEDS: XOPENEX NEB INH SCH ×6 (03:40→22:58)
--- NOTE | 2018-08-10 07:20 | INFECTIOUS DISEASE PROGRESS NO ---
DATE: 08/10/2018 PRESENT ILLNESS: The patient has an oxacillin-sensitive Staph aureus pneumonia with an associated bacteremia. He also has an immunoglobulin deficiency and an oral candidiasis. The patient had a transesophageal echocardiogram, and I heard that there was no evidence of endocarditis, but I have not seen the final report. MEDICATIONS: The patient is on nafcillin for the bacteremia and pneumonia, and Mycostatin for the oral candidiasis. The patient has received an infusion of immunoglobulin to increase his IgG level to the normal range. PHYSICAL EXAMINATION: Vital Signs: Temperature is 98.8 degrees, pulse 122, respirations 16, blood pressure 134/67. General: This is an ill-appearing, elderly male. He is in no acute distress. HEENT: He can hear my spoken words and see near objects. He does not have any white patches on his tongue. Neck: No stiffness. Lungs: Clear to auscultation. Cardiovascular: The patient's heart rate is rapid and irregular. Abdomen: Soft and not tender. Neurologic: The patient is awake. He can move his extremities. There is no tremor. Integument: No rash noted. IMAGING AND LABORATORY DATA: As mentioned above, the patient had a transesophageal echocardiogram, and the result is not yet back. Lab-long, the patient has a CBC with a white count of 7540, hemoglobin 11, and platelet count 369,000. Creatinine is 0.7. GFR is greater than 60. Yesterday, the patient had blood cultures drawn, the results of which are pending. Only 1 of 2 blood cultures drawn on 08/06/2018 grew an oxacillin-sensitive Staph aureus. ASSESSMENT AND PLAN: The patient has Staph aureus bacteremia with an associated pneumonia. He also has an immunoglobulin deficiency and oral candidiasis. My plan is to continue the current medications, namely nafcillin and Mycostatin swish and swallow. The patient already has received intravenous immunoglobulin. COMORBIDITIES: He is elderly, and he has an immunoglobulin deficiency. cc: MD Rodrigo Adair MD
[2018-08-10] MEDS: CARDIZEM CD PO SCH ×2 (08:28→20:00)
[2018-08-10] MEDS: ELIQUIS PO SCH ×2 (08:28→20:00)
[2018-08-10] MEDS: ASPIRIN EC PO SCH (08:28)
[2018-08-10] MEDS: LANOXIN PO SCH (08:28)
[2018-08-10] MEDS: MYCOSTATIN SUSP PO SCH ×4 (08:29→20:00)
--- NOTE | 2018-08-10 17:35 | CARDIOLOGY PROGRESS NOTE ---
DATE: 08/10/2018 SUBJECTIVE: Mr. Cain reports he is doing better. He believes his strength is a little bit better, as is his breathing. He is not having any heart racing. PHYSICAL EXAMINATION: Vital signs: He is afebrile. His heart rate is 95 most recently. His heart rates have been anywhere from the 90s to 110s predominantly. His blood pressure is 120/43. General: He is in no acute distress. Cardiovascular: He is in an irregularly irregular rhythm presently. He has no obvious murmurs. No lower extremity edema. Chest exam: Has some mild rales in the bilateral bases but no increased work of breathing. Abdomen: Soft, nontender. PERTINENT DATA: He has no new laboratory data from today. ASSESSMENT: Mr. Cain is a 78-year-old gentleman with a presumed Staph pneumonia. He is receiving antibiotics. He has a history of atrial fibrillation. PLAN: We will continue on current medications. His rate control is reasonable presently. I would continue him on the 5 mg b.i.d. dose of apixaban, as it is appropriately dosed for his age, weight and renal function. Overall, the patient sounds to be clinically improving from his symptoms. His rate control continues to be somewhat tenuous, but hopefully with continued improvement of his pulmonary status he will improve. cc: MD Rodrigo Herrera MD
--- NOTE | 2018-08-10 18:50 | Transesophageal Echocardiogram ---
DATE: 08/09/2018 PROCEDURE DETAIL: Mr. Cain was brought to the catheterization laboratory in a fasting state. Informed consent was obtained. Prepped in the usual fashion. He was anesthetized with HurriCaine spray. Propofol sedation was administered by Anesthesia. After appropriate sedation, RACHID probe was passed without difficulty. Images were obtained in multiple planes. No apparent complications. The probe was removed at the conclusion of the procedure. FINDINGS: 1. The right atrium is severely enlarged. There is no evidence of clot seen. Evaluation of the interatrial septum does not show any color Doppler shunting nor any shunting with injection of agitated saline contrast. 2. There is suggestion of severe tricuspid regurgitation. The right ventricle appears normal in size on this study, with normal systolic function. No significant pulmonic insufficiency on difficult views of the pulmonic valve. 3. The left atrium is moderately to severely enlarged. It was incompletely visualized due to the size. There is no clot visualized in the left atrium or left atrial appendage. 4. No mitral valve prolapse. Mild mitral regurgitation. 5. Normal LV size. Normal LV systolic function with an estimated EF greater than or equal to 55%. 6. The aortic valve appears trileaflet. No evidence of stenosis or insufficiency. 7. The aorta appears normal in caliber. There is minimal atherosclerosis in the descending thoracic aorta. 8. No pericardial effusion seen. 9. There is no indication of any adherent vegetations to any of the valvular structures. cc: MD Susie Herrera PA Scott A. Matthews, MD
--- NOTE | 2018-08-10 20:51 | PROGRESS NOTE ---
DATE: 08/10/2018 SUBJECTIVE: This morning the patient was resting in bed. A long discussion was held in regards to his current condition and expectations in recovery. Throughout the day today the patient states he became much more active. He was able to ambulate with assistance in his room. The patient's p.o. intake, while marginal, also is improving. He denies fevers, chills, nausea, vomiting, shortness of breath or chest discomfort. He continues to have lower extremity edema. OBJECTIVE: T-max 98.1 degrees, heart rate 86 to 115, respirations 16 to 28. Blood pressure 120 to 146 over 43 to 85. General: Well nourished, well developed, in no acute distress. Cardiovascular: Irregularly irregular. Tachycardic. No significant murmurs, rubs or gallops. Pulmonary: Clear to auscultation bilaterally. Abdomen soft, nontender, nondistended. Positive bowel sounds. Extremities: Moves all extremities well. No significant clubbing or cyanosis. Lower extremity edema 1 to 2+ bilaterally. Dermatologic evaluation reveals no evidence of rash. LABORATORY DATA: None. ASSESSMENT AND PLAN: 1. Suspected pneumonia: This was diagnosed per chest x-ray and CT scan. With blood cultures positive for Staphylococcus aureus, question is raised as to a staphylococcal pneumonia. Clinically the patient is achieving improvement. We will continue antibiotics per Dr. Ely. 2. Bacteremia/sepsis: Initial blood cultures and one surveillance culture returned positive for methicillin-sensitive Staphylococcus aureus. Repeat surveillance cultures thus far are negative. For now, we will continue antibiotics per Dr. Ely. We will determine outpatient regimen depending on his response. 3. Atrial fibrillation with rapid ventricular response: I appreciate Cardiology consultation. Heart rate is improving on his current regimen. We will continue long-term anticoagulation with Eliquis. 4. Intractable low back pain: The patient has chronic low back pain. Upon admission he had a significant exacerbation. While hospitalized his condition has stabilized. We will continue pain medications as necessary. 5. Hypertension: The patient's blood pressure is reasonably controlled on his current regimen. We will continue to follow this and adjust medications as necessary. 6. Profound weakness: We will continue physical therapy. The patient likely will require home health versus rehabilitation at discharge. 7. Volume overload: The patient was given a diuresis holiday today. We will likely resume diuresis in the a.m. 8. Hypokalemia: The patient has been replenished. 9. Disposition: At this point the patient continues to require [facility] care in a hospital setting. We will plan discharge home or to rehabilitation once appropriate. cc: Rodrigo Welsh MD
[2018-08-10] MEDS: MORPHINE IV PRN (23:45)
[2018-08-11] MEDS: NAFCIL 2 GM in NS 100 ML IV SCH ×6 (00:48→20:31)
[2018-08-11] MEDS: MORPHINE IV PRN (02:34)
[2018-08-11] MEDS: XOPENEX NEB INH SCH ×6 (03:41→23:17)
[2018-08-11] MEDS: ATROVENT NEB INH SCH ×6 (03:41→23:17)
[2018-08-11 05:48] LABS: BASO# 0.04 X1000 (0.0-0.2); BASO% 0.5 % (0.0-0.8); EOS# 0.14 X1000 (0.0-0.7); EOS% 1.9 % (0.0-10.0); HEMOGLOBIN 10.3 g/dL (14.0-18.0); IMM GRAN# 0.07 X1000 (0.0-0.04); IMM GRAN% 0.9 % (0.0-0.5); LYMPH% 14.8 % (20.5-51.1); MCH 32.4 PG (27-31); MCHC 33.2 g/dL (33-37); MCV 97.5 FL (81-99); MONO# 0.88 X1000 (0.11-0.59); MONO% 11.8 % (1.7-9.3); NEUT# 5.21 X1000 (1.4-6.5); NEUT% 70.1 % (42.2-75.2); PLT 439 X1000 (130-400); RBC 3.18 XMIL (4.7-6.1); RDW 14.8 % (11.5-14.5); WBC 7.44 X1000 (4.8-10.8)
[2018-08-11 06:34] LABS: AGAP 10; ALB/GLOB RATIO 0.8; ALBUMIN 2.3 g/dL (3.5-5.0); ALKALINE PHOSPHATASE 56 U/L (32-122); BUN 10 mg/dL (8-22); CALCIUM 8.1 mg/dL (8.8-10.2); CHLORIDE 102 mmol/L (98-107); COSMO 283; CREATININE 0.7 mg/dL (0.7-1.2); ESTIMATED GFR > 60; GLUCOSE 119 mg/dL (70-104); GOT 16 U/L (10-34); GPT 11 U/L (10-44); SODIUM 142 mmol/L (136-145); TCO2 30 mmol/L (25-35); TOTAL BILIRUBIN 0.58 mg/dL (0.20-1.00); TOTAL PROTEIN 5.1 g/dL (6.3-8.3)
[2018-08-11 06:37] LABS: POTASSIUM 2.5 mmol/L (3.5-5.1)
[2018-08-11 06:57] LABS: INR 1.34; PROTIME 17.6 Seconds (11.0-16.0)
[2018-08-11] MEDS: POTASSIUM CHLORIDE 20 MEQ/SWI 20 MEQ/100 ML IVPB IV SCH ×2 (08:25→13:51)
[2018-08-11] MEDS: MYCOSTATIN SUSP PO SCH ×4 (08:26→20:31)
[2018-08-11] MEDS: ELIQUIS PO SCH ×2 (08:26→20:31)
[2018-08-11] MEDS: ASPIRIN EC PO SCH (08:26)
[2018-08-11] MEDS: LANOXIN PO SCH (08:26)
[2018-08-11] MEDS: CARDIZEM CD PO SCH ×2 (08:26→20:31)
[2018-08-11] MEDS ORDERED: NS 250 ML ONE (12:10)
--- NOTE | 2018-08-11 13:08 | INFECTIOUS DISEASE PROGRESS NO ---
DATE: 08/11/2018 PRESENT ILLNESS: The patient has an oxacillin sensitive Staph aureus pneumonia and associated bacteremia. He also has an immunoglobulin deficiency and oral candidiasis. The patient's transesophageal echocardiogram showed that there was no vegetation adherent to any valvular structure. MEDICATIONS: The patient is on nafcillin for the bacteremia and pneumonia. The patient's repeat blood cultures are sterile, therefore this is day 2 of treatment with nafcillin with day 1 being the first day that the repeat blood cultures are sterile. The patient is on Mycostatin for his oral candidiasis. As regarding his immunoglobulin deficiency, he has had IVIG during this hospitalization. PHYSICAL EXAMINATION: Vital Signs: Temperature is 97.8 degrees paced, pulse 88, respirations 16, blood pressure 115/67. The patient weighs 154 pounds. General: This is a somewhat ill- appearing elderly male. He is in no acute distress. Head, eyes, ears, nose, and throat: He can hear my spoken words and see near objects. He does not have any white patches on his tongue. Neck: No meningismus. Lungs: Clear to auscultation. Cardiovascular: Heart rate is rapid and irregular. Abdomen: Soft and nontender. Neurologic: The patient is alert. He can move his extremities. He was walking yesterday with the help of a cane. There is no tremor. LABS: The patient's CBC for today shows a white count of 7440, hemoglobin 10.3, and platelet count 439,000. LAB AND X-RAY: As mentioned above, the transesophageal echocardiogram showed no vegetations adherent to the valvular structures. ASSESSMENT AND PLAN: Patient has an oxacillin sensitive Staph aureus pneumonia, which appears to have cleared ,and an associated bacteremia. The plan is to treat the patient I think for 4 weeks rather than just 2 weeks in view of the fact that it was difficult to clear his bloodstream of the infection. today, I have ordered for it to have a PICC put in. COMORBIDITIES: The patient's comorbidities reveal he is elderly and he has an immunoglobulin deficiency. cc: MD Rodrigo Adair MD
--- NOTE | 2018-08-11 13:32 | Diag Imaging Result Doc PS360 ---
EXAM: CHEST-PORTABLE HISTORY: PICC LINE PLACEMENT TECHNIQUE: Single view of the chest was performed portably. COMPARISON: 08/09/2018 FINDINGS: A left-sided PICC catheter has been placed with its tip in the lower SVC. Cardiomegaly with vascular congestion and bilateral pleural effusions are again noted. IMPRESSION: Satisfactory PICC catheter placement. Electronically signed by Shira Murillo 08/11/2018 1:29 PM
[2018-08-11] MEDS: NORCO-7.5 PO PRN ×2 (16:06→20:31)
--- NOTE | 2018-08-11 20:52 | PROGRESS NOTE ---
DATE: 08/11/2018 SUBJECTIVE: This morning, patient was sitting upright in bed. He noted having a reasonable evening. Throughout the day today, patient has been quite busy. Patient had a PICC line placed. He has worked with physical therapy. His energy level continues to slowly improve. His p.o. intake is reasonable. He continues to have some lower extremity edema, although this is stable. He denies fevers, chills, nausea, vomiting, or chest discomfort. OBJECTIVE: Vital Signs: T-max 98.4 degrees, heart rate 65 to 121, respirations 15 to 21, blood pressure 115 to 150 over 57 to 67. General: Well nourished, well developed, in no acute distress. Cardiovascular: Irregularly irregular. No significant murmurs, rubs, or gallops. Pulmonary: Minimal crackles at bilateral bases. Adequate air movement. Abdomen: Soft, nontender, nondistended. Positive bowel sounds. Extremities: Moves all extremities well. No significant clubbing or cyanosis. Has 2+ lower extremity edema bilaterally. Dermatologic: Evaluation reveals no evidence of rash. LABORATORY DATA: White blood cell count 7.44, hemoglobin 10.3, hematocrit 31.0, platelet count 439,000. Sodium 142, potassium 2.5, chloride 102, bicarb 30, BUN 10, creatinine 0.7, glucose 119. Calcium 8.1, total bilirubin 0.58, total protein 5.1, albumin 2.3 alkaline phosphatase 56, AST 16, ALT 11. ASSESSMENT AND PLAN: 1. Pneumonia - this likely represents an underlying Staph aureus pneumonia in the setting of bacteremia and no additional sources. We will continue antibiotics per Dr. Ely. 2. Bacteremia/sepsis - blood cultures have grown Staph methicillin-sensitive Staph aureus. Surveillance cultures are currently negative. We will continue nafcillin per Dr. Ely. 3. Atrial fibrillation with rapid ventricular response - patient is achieving slow improvement. We will continue current regimen per Cardiology. 4. Intractable low back pain - overall, his condition has stabilized. We will continue to encourage physical therapy. He will be treated with pain medications as needed. 5. Hypertension - blood pressure is controlled on his current regimen. 6. Profound weakness - the patient is achieving improvement with physical therapy. I suspect he will benefit from rehabilitation at discharge. 7. Volume overload - the patient's diuresis was held today secondary to significant hypokalemia. We will replace as noted below. We will plan to resume diuresis tomorrow. 8. Hypokalemia - the patient's potassium is significantly low. He has been treated with replacement. We will recheck this in the morning. 9. Disposition - at this point, patient continues to require long term care in a hospital setting. We will plan discharge home once appropriate. cc: Rodrigo Welsh MD
[2018-08-12] MEDS: NORCO-7.5 PO PRN ×3 (00:30→21:06)
[2018-08-12] MEDS: NAFCIL 2 GM in NS 100 ML IV SCH ×7 (00:30→23:52)
[2018-08-12] MEDS: ATROVENT NEB INH SCH ×6 (04:49→23:00)
[2018-08-12] MEDS: XOPENEX NEB INH SCH ×6 (04:49→23:00)
[2018-08-12 05:42] LABS: AGAP 10; BUN 12 mg/dL (8-22); CALCIUM 7.9 mg/dL (8.8-10.2); CHLORIDE 105 mmol/L (98-107); COSMO 286; CREATININE 0.6 mg/dL (0.7-1.2); ESTIMATED GFR > 60; GLUCOSE 94 mg/dL (70-104); POTASSIUM 2.9 mmol/L (3.5-5.1); SODIUM 144 mmol/L (136-145); TCO2 29 mmol/L (25-35)
[2018-08-12] MEDS: ASPIRIN EC PO SCH (08:24)
[2018-08-12] MEDS: MYCOSTATIN SUSP PO SCH ×4 (08:24→21:06)
[2018-08-12] MEDS: ELIQUIS PO SCH ×2 (08:24→21:06)
[2018-08-12] MEDS: LANOXIN PO SCH (08:24)
[2018-08-12] MEDS: CARDIZEM CD PO SCH ×2 (08:24→21:06)
[2018-08-12] MEDS ORDERED: LASIX IV ONE (10:25)
[2018-08-12] MEDS: POTASSIUM CHLORIDE 20 MEQ/SWI 20 MEQ/100 ML IVPB IV SCH ×2 (11:57→14:00)
--- NOTE | 2018-08-12 13:00 | PROGRESS NOTE ---
DATE: 08/12/2018 SUBJECTIVE: Overall, patient's condition continues to very slowly improve. Upon my arrival this morning, patient was sitting upright in a chair. His son was present. Throughout the day yesterday, patient did reasonably well. He had a PICC line placed. He remains very weak, but is working with Physical Therapy. He continues to require IV antibiotics for his underlying pneumonia/sepsis. He continues to have lower extremity edema. This is not limiting his activity. He denies fevers, chills, nausea, vomiting, shortness of breath, or chest discomfort. OBJECTIVE: Vital signs: T-max 98.8 degrees, heart rate 74 to 111, respirations 14 to 18, blood pressure 124 to 150 over 58 to 76. General: No acute distress. Cardiovascular: Irregularly irregular. No significant murmurs, rubs, or gallops. Pulmonary: Clear to auscultation bilaterally. Abdomen: Soft, nontender, nondistended. Positive bowel sounds. Extremities: Moves all extremities well. No significant clubbing, cyanosis, or edema. Dermatologic: No evidence of rash. LABORATORY DATA: Sodium 144, potassium 2.9, chloride 105, bicarb 29, BUN 12, creatinine 0.6, glucose 94, calcium 7.9. ASSESSMENT AND PLAN: 1. Pneumonia - this likely is the source for his underlying Staph aureus bacteremia. We will continue to treat patient with IV antibiotics per Dr. Ely' recommendation. 2. Bacteremia/sepsis - the patient's vital signs have stabilized. Recent surveillance cultures are negative. We will continue IV antibiotic intervention for methicillin sensitive Staph aureus per Dr. Ely. 3. Atrial fibrillation with rapid ventricular response - the patient is currently being treated with diltiazem, digoxin, and as needed metoprolol per Cardiology. Heart rate today is controlled. He is anticoagulated with Eliquis therapy. 4. Intractable low back pain - the exacerbation patient from admission has improved. He is now suffering from his chronic low back pain. At this point, no surgical intervention will be able to be pursued until IV antibiotics have been completed. We will continue symptomatic management for now and physical therapy. 5. Hypertension - blood pressure is reasonably controlled on his current regimen. 6. Profound weakness - the patient is achieving some improvement with physical therapy. We will continue this. 7. Volume overload - this likely is a consequence from IV fluid replacement in the setting of sepsis. We will again diuresis with Lasix therapy. 8. Hypokalemia - we will replete again today. 9. Disposition - at this point, patient continues to require long term care in a hospital setting. We will plan discharge home once appropriate. cc: Rodrigo Welsh MD
[2018-08-12] MEDS ORDERED: KLOR-CON PO ONE (17:24)
[2018-08-13] MEDS: XOPENEX NEB INH SCH ×6 (03:33→23:17)
[2018-08-13] MEDS: ATROVENT NEB INH SCH ×6 (03:33→23:17)
[2018-08-13] MEDS: NORCO-7.5 PO PRN ×4 (04:24→21:47)
[2018-08-13] MEDS: NAFCIL 2 GM in NS 100 ML IV SCH ×5 (04:25→21:04)
[2018-08-13 06:17] LABS: AGAP 10; BUN 13 mg/dL (8-22); CALCIUM 8.5 mg/dL (8.8-10.2); CHLORIDE 105 mmol/L (98-107); COSMO 289; CREATININE 0.8 mg/dL (0.7-1.2); ESTIMATED GFR > 60; GLUCOSE 99 mg/dL (70-104); POTASSIUM 3.1 mmol/L (3.5-5.1); SODIUM 145 mmol/L (136-145); TCO2 30 mmol/L (25-35)
[2018-08-13] MEDS: MYCOSTATIN SUSP PO SCH ×4 (08:31→22:39)
[2018-08-13] MEDS: LANOXIN PO SCH (08:31)
[2018-08-13] MEDS: ASPIRIN EC PO SCH (08:31)
[2018-08-13] MEDS: CARDIZEM CD PO SCH ×2 (08:31→22:39)
[2018-08-13] MEDS: ELIQUIS PO SCH ×2 (08:31→22:39)
--- NOTE | 2018-08-13 09:21 | INFECTIOUS DISEASE PROGRESS NO ---
DATE: 08/13/2018 PRESENT ILLNESS: The patient has an oxacillin sensitive Staph aureus bacteremia. It appears his pneumonia has cleared. The patient also has an immunoglobulin deficiency and oral candidiasis. MEDICATIONS: This is day 4 of treatment with nafcillin with day 1 being the first day that the patient's blood cultures are sterile. The patient also takes Mycostatin swish and swallow for his oral candidiasis. The patient also has an immunoglobulin deficiency as mentioned above and has received IV-Ig during this hospitalization. PHYSICAL EXAMINATION: Vital Signs: Temperature is 97.8 degrees, pulse 88, respirations 18, blood pressure 123/72. General: This is a ill-appearing elderly male. He is in no acute distress. HEENT: He can hear my spoken words and see near objects. He does not have any white coating on his tongue. Neck: No stiffness, Lungs: Clear to auscultation. Cardiovascular: Heart rate is rapid and irregular. Abdomen: Soft and nontender. Extremities: The patient has a PICC in the left arm. The PICC site is not swollen or erythematous. Neurologic: The patient is alert. He can move his extremities. He tells me that he does walk in his room with use of a cane. LAB AND X-RAY: Chest x-ray shows cardiomegaly, pulmonary venous congestion, and bilateral pleural effusions. The creatinine today is 0.8, GFR is greater than 60. ASSESSMENT/PLAN: Patient has Staph aureus bacteremia. The plan is to treat him with 4 weeks with nafcillin. This is the 4th day of treatment with nafcillin. The patient also will have a repeat of his immunoglobulin levels in 6 to 8 weeks since he received an infusion and if the levels are low, then he may be a candidate for immunoglobulin replacement therapy. COMORBIDITIES: The patient is elderly and he has an immunoglobulin deficiency. cc: MD Rodrigo Adair MD
[2018-08-13] MEDS ORDERED: KLOR-CON PO ONE ×2 (09:22→17:00)
[2018-08-13] MEDS ORDERED: LASIX IV ONE (09:24)
--- NOTE | 2018-08-13 11:55 | PROGRESS NOTE ---
DATE: 08/13/2018 SUBJECTIVE: This morning, patient is upright in the chair. The patient states he had a reasonable day yesterday. Complaints today include mild diarrhea, but well-controlled, right upper extremity swelling, and persistent lower extremity edema. The right upper extremity swelling has occurred within the last 24 hours. He does not have an IV at that site. Diarrhea is occurring approximately once per day. This is controlled without evidence of hematochezia or melena. He denies abdominal discomfort, fevers, or chills. Lower extremity edema is slowly improving with diuretic intervention. He denies fevers, chills, nausea, vomiting, shortness of breath, or chest discomfort at present time. OBJECTIVE: Vitals: Temperature maximum 98.3 degrees, heart rate 88 to 121, respirations 16 to 18, blood pressure 118 to 134 over 49 to 72. General: Well nourished, well developed, no acute distress. Cardiovascular: Irregularly irregular. No significant murmurs, rubs, or gallops. Pulmonary: Clear to auscultation bilaterally. Abdomen: Soft, nontender, nondistended. Positive bowel sounds. Extremities: Moves all extremities well. 1 to 2+ lower extremity edema bilaterally. No clubbing or cyanosis. Asymmetric upper extremity edema, right greater than left. Dermatologic: Evaluation reveals no evidence of rash. LABORATORY DATA: Sodium 145, potassium 3.1, chloride 105, bicarb 30, BUN 13, creatinine 0.8, glucose 99, calcium 8.5. ASSESSMENT AND PLAN: 1. Pneumonia-this likely is the source of his underlying Staph aureus bacteremia. Clinically, patient continues to demonstrate improvement. We will continue IV antibiotics per Dr. Ely's recommendation. 2. Bacteremia/sepsis-vital signs are reasonably stable. Recent surveillance cultures have returned negative. We will continue IV antibiotic intervention for methicillin sensitive Staph aureus bacteremia per Dr. Ely. A PICC line is intact. 3. Right upper extremity edema-I suspect this is from a previous IV site. I cannot, however, completely rule out underlying deep venous thrombosis. We will refer patient for Doppler evaluation. We will remain aware that patient is already being treated with Eliquis therapy. 4. Diarrhea-I suspect this is antibiotic associated. At this point, I cannot fully rule out Clostridium difficile, however, this seems less likely with only approximately 1 episode of diarrhea per day. We will follow this. 5. Should patient have persistence or worsening of his condition, we will plan further stool evaluation. 6. Atrial fibrillation with rapid ventricular response-patient's heart rate is reasonably controlled with diltiazem, digoxin, and as needed metoprolol. We will continue anticoagulation with Eliquis therapy. 7. Intractable low back pain-the patient has achieved stabilization. We will continue as-needed pain medications as he is not a surgical candidate at present time. Once his course of antibiotics have been completed, he will need to consider surgical intervention at that time. 8. Hypertension-blood pressure is reasonably controlled on his current regimen. 9. Profound weakness-the patient is slowly improving with physical therapy. We will continue this. He will require rehabilitation at discharge. 10. Volume overload-we will again treat patient with Lasix today. I suspect this is simply secondary to equilibration of his volume after volume resuscitation in the setting of sepsis. 11. Hypokalemia-we will replace again today. 12. Disposition-at this point, patient continues to require [facility] in a hospital setting. We will plan discharge to rehabilitation once able. cc: Rodrigo Welsh MD
[2018-08-14] MEDS: NAFCIL 2 GM in NS 100 ML IV SCH ×4 (00:25→12:55)
[2018-08-14] MEDS: MORPHINE IV PRN (02:11)
[2018-08-14] MEDS: XOPENEX NEB INH SCH ×3 (03:33→11:46)
[2018-08-14] MEDS: ATROVENT NEB INH SCH ×3 (03:33→11:46)
[2018-08-14 05:28] LABS: BASO# 0.08 X1000 (0.0-0.2); BASO% 1.1 % (0.0-0.8); EOS# 0.26 X1000 (0.0-0.7); EOS% 3.7 % (0.0-10.0); HEMATOCRIT 31.3 % (42.0-52.0); HEMOGLOBIN 10.5 g/dL (14.0-18.0); LYMPH# 0.92 X1000 (1.2-3.4); LYMPH% 12.9 % (20.5-51.1); MCH 33.8 PG (27-31); MCHC 33.5 g/dL (33-37); MCV 100.6 FL (81-99); MONO# 0.73 X1000 (0.11-0.59); MONO% 10.3 % (1.7-9.3); MPV 9.2 FL (7.4-10.4); NEUT# 5.13 X1000 (1.4-6.5); PLT 456 X1000 (130-400); RBC 3.11 XMIL (4.7-6.1); RDW 15.5 % (11.5-14.5); WBC 7.12 X1000 (4.8-10.8)
[2018-08-14 05:49] LABS: AGAP 10; AGAP 8; ALB/GLOB RATIO 1.4; ALBUMIN 2.9 g/dL (3.5-5.0); ALKALINE PHOSPHATASE 58 U/L (32-122); BUN 18 mg/dL (8-22); CALCIUM 8.5 mg/dL (8.8-10.2); CALCIUM 8.7 mg/dL (8.8-10.2); CHLORIDE 103 mmol/L (98-107); COSMO 287; COSMO 290; CREATININE 0.8 mg/dL (0.7-1.2); ESTIMATED GFR > 60; GLUCOSE 96 mg/dL (70-104); GLUCOSE 99 mg/dL (70-104); GOT 16 U/L (10-34); GPT 11 U/L (10-44); POTASSIUM 3.8 mmol/L (3.5-5.1); SODIUM 143 mmol/L (136-145); SODIUM 145 mmol/L (136-145); TCO2 32 mmol/L (25-35); TOTAL BILIRUBIN 0.45 mg/dL (0.20-1.00)
--- NOTE | 2018-08-14 08:32 | INFECTIOUS DISEASE PROGRESS NO ---
DATE: 08/14/2018 PRESENT ILLNESS: The patient has an oxacillin sensitive Staph aureus bacteremia. There also was pneumonia, but this has cleared. The patient also has an immunoglobulin deficiency and oral candidiasis. MEDICATIONS: This is the 5th day of treatment with nafcillin with day 1 being the first day that the patient's blood cultures are sterile. The patient also is on Mycostatin for his oral candidiasis, and he has received also an immunoglobulin infusion because of the immunoglobulin deficiency. PHYSICAL EXAMINATION: Vital Signs: Temperature is 98 degrees, pulse 74, respirations 19, blood pressure 133/66. General: This is a ill-appearing elderly male. He is in no acute distress. Head/eyes/ears/nose/throat: He can hear my spoken words and see near objects. He does not have any white patches on his tongue. Neck: No stiffness. Lungs: Clear to auscultation. Cardiovascular: Heart rate is irregular. Abdomen: Soft and nontender. Extremities: The patient told me that he had pain in his feet last night. We removed the elastic stockings and then the slippers from his feet. Both feet are warm. Pulses are palpable, and there is no erythema. The patient has a PICC in the left arm. The site is not erythematous or swollen. Neurologic: The patient is alert. He can move his extremities. There is no tremor. LABORATORY AND X-RAY: CBC shows a white count of 7120, hemoglobin 10.5, and platelet count 456,000. Creatinine 0.8, GFR is greater than 60. Liver function studies are normal. ASSESSMENT AND PLAN: 1. Patient has Staph aureus bacteremia. I plan to treat the patient for 4 weeks with nafcillin with day 1 being the first day that the patient's blood cultures are sterile. If the patient leaves today for rehab, he will have 23 days left of giving nafcillin. If he is at the rehab for 2 weeks, then he will have 9 days left of nafcillin. I am going to put in a consult for one of the companies that supply home antibiotics to supply the patient's remaining 9 days after he leaves the rehab if he is there 2 days for him to do at home. I will be following the patient's immunoglobulin levels as mentioned earlier, and we will repeat them in 6 to 8 weeks. If they are still low, then I think the patient would be a good candidate for monthly IVIG infusions. 2. Comorbidities: The patient is elderly and he appears to have an immunoglobulin deficiency. cc: MD Rodrigo Adair MD
[2018-08-14] MEDS: ELIQUIS PO SCH (09:04)
[2018-08-14] MEDS: MYCOSTATIN SUSP PO SCH (09:04)
[2018-08-14] MEDS: LANOXIN PO SCH (09:04)
[2018-08-14] MEDS: ASPIRIN EC PO SCH (09:04)
[2018-08-14] MEDS: CARDIZEM CD PO SCH (09:04)
--- NOTE | 2018-08-14 10:34 | EKG Report ---
Test Performed on : 08/14/2018 10:29:50 AM Test Reason : hx afib, dyspnea Blood Pressure : / mmHG Vent. Rate : 109 BPM Atrial Rate : 100 BPM P-R Int : 000 ms QRS Dur : 114 ms QT Int : 292 ms P-R-T Axes : 000 -21 137 degrees QTc Int : 393 ms Atrial fibrillation. with rapid ventricular response. with premature ventricular or aberrantly conduc bernadette complexes. Low voltage QRS Septal infarct , age undetermined Abnormal ECG When compared with ECG of 06-AUG-2018 03:15, QRS duration has increased Septal infarct is now present ST elevation now present in Anterior leads T wave inversion no longer evident in Anterior leads Nonspecific T wave abnormality now evident in Lateral leads Unconfirmed Result
[2018-08-14] MEDS ORDERED: LOPRESSOR PO SCH (10:45)
--- NOTE | 2018-08-14 10:55 | DISCHARGE SUMMARY ---
ADMISSION DATE: 08/03/2018 DISCHARGE DATE: 08/14/2018 ADMISSION DIAGNOSIS: Intractable low back pain. DISCHARGE DIAGNOSES: 1. Pneumonia, suspected secondary to Staphylococcus aureus. 2. Bacteremia/sepsis secondary to methicillin-sensitive Staphylococcus aureus. 3. Atrial fibrillation with rapid ventricular response, controlled. 4. Right upper extremity edema, right upper extremity Doppler pending. 5. Intermittent diarrhea, suspected antibiotic associated. 6. Intractable low back pain with exacerbation, controlled. 7. Hypertension, present on arrival. 8. Profound weakness, secondary to above diagnoses. 9. Mild volume overload, stable. 10. Hypokalemia, stable. CONSULTATIONS: 1. Dr. Hsieh with cardiology was consulted for further evaluation and management of atrial fibrillation with rapid ventricular response. 2. Dr. Ming Ely with infectious diseases was consulted for further evaluation and management of methicillin-sensitive Staphylococcus aureus bacteremia/sepsis. PROCEDURES: 1. CT scan of the thorax, abdomen, and pelvis was performed on 08/03/2018 which revealed left lower lobe atelectasis versus pneumonia. Small bilateral pleural effusions. Constipation. 2. Transthoracic echocardiogram was performed on 08/07/2018 which revealed a technically suboptimal study. Normal left ventricular cavity size. Estimated ejection fraction of 50%. Mitral valve leaflets were normal. There is mitral annular calcification. Tricuspid valve was normal. Aortic valve leaflets were trileaflet. Pulmonic valve was normal. Right ventricle was dilated with reduced right ventricular systolic function. There was severe right atrial enlargement. There was left atrial enlargement. There was moderate to severe tricuspid regurgitation. Pulmonary artery systolic pressure of 54 mmHg. There was mild mitral regurgitation. By Doppler studies, there was no aortic stenosis or regurgitation. There was no pericardial effusion or obvious intracardiac mass or thrombus seen. 3. Transesophageal echocardiogram was performed on 08/03/2018 which revealed right atrium is severely enlarged. There is no evidence of clot seen. Evaluation of the interatrial septum does not show any color Doppler shunting nor any shunting with injection of agitated saline contrast. There is suggestion of severe tricuspid regurgitation. The right ventricle appears normal in size on this study, with normal systolic function. No significant pulmonic insufficiency on difficult views of the pulmonic valve. The left atrium is moderately to severely enlarged. It was incompletely visualized due to the size. There was no clot visualized in the left atrium or left atrial appendage. No mitral valve prolapse. Mild mitral regurgitation. Normal left ventricular size. Normal left ventricular systolic function with an estimated ejection fraction greater than or equal to 55%. The aortic valve appears trileaflet. No evidence of stenosis or insufficiency. The aorta appears normal in caliber. There is minimal atherosclerosis in the descending thoracic aorta. No pericardial effusion seen. There is no indication of any adherent vegetations to any of the valvular structures. HISTORY AND PHYSICAL EXAMINATION: See admission note. PHYSICAL EXAMINATION PRIOR TO DISCHARGE: Vital Signs: Temperature 98.3 degrees, heart rate 101, respirations 16, blood pressure is 134/95. General: No acute distress. Cardiovascular: Irregularly irregular. No significant murmurs, rubs, or gallops. Pulmonary: Clear to auscultation bilaterally. Abdomen: Soft, nontender, nondistended. Positive bowel sounds. Extremities: Moves all extremities well. No significant clubbing or cyanosis. There is 1+ lower extremity edema bilaterally. Dermatologic: Evaluation reveals no evidence of rash. LABORATORY DATA: Prior to discharge, white blood cell count was 7.12, hemoglobin 10.5, hematocrit 31.3, platelet count 456,000. Sodium 145, potassium 4.0, chloride 103, bicarb 32, BUN 18, creatinine 0.8, glucose 96, calcium 8.5. Total bilirubin 0.45, total protein 5.0, albumin 2.9, alkaline phosphatase 58, AST 16, ALT 11. HOSPITAL COURSE: The patient was admitted as per history and physical examination. Hospital course per condition is as follows: 1. Pneumonia, presumed secondary to methicillin-sensitive Staphylococcus aureus-upon admission, the patient was noted to have a grossly elevated white blood cell count. Full evaluation suggested an underlying pneumonia. Ultimately, the patient's blood cultures grew methicillin- sensitive Staphylococcus aureus as described below. With treatment including nafcillin, bronchodilators, and oxygen supplementation, the patient has achieved improvement, but not resolution. The patient will continue on nafcillin and bronchodilators while in rehabilitation. We will encourage aspiration precautions, incentive spirometry, and increased pulmonary activity. This will be followed closely as an outpatient. 2. Bacteremia/sepsis-upon admission, the patient met criteria. He ultimately grew methicillin- sensitive Staphylococcus aureus. Dr. Ely was consulted. Initially, the patient was placed on broad-spectrum antibiotics but with culture data, was transitioned to nafcillin therapy. The patient will be discharged on nafcillin 2 g every 4 hours for a total of 4 weeks. He will be discharged on day 5 of nafcillin intervention. Outpatient antibiotics will need to be arranged through Dr. Ming Ely. The patient will be discharged with a PICC line intact. 3. Right upper extremity edema-on the day prior to discharge, right upper extremity edema was noted. The patient is currently in for Doppler evaluation. We will follow this up and address as necessary. At this point, he is already treated with Eliquis therapy. Doppler will simply confirm whether a clot is present, but will not likely change the course of therapy. 4. Diarrhea-while hospitalized, the patient has had mild, intermittent diarrhea. At this point, it is likely secondary to antibiotic associated disease. There has been no evidence of fevers, chills, or abdominal discomfort to suggest underlying Clostridium difficile. This will need to be followed as an outpatient. 5. Atrial fibrillation with rapid ventricular response-upon admission, the patient was noted to have heart rates in the 140 to 160 range. This likely was a consequence of his underlying atrial fibrillation and sepsis. With treatment of his sepsis as well as medication adjustments, his rate has been better controlled. He will be discharged with diltiazem and digoxin therapy. He will be anticoagulated with Eliquis. 6. Intractable low back pain-the patient has chronic disease. Prior to admission, he was considering surgical intervention. The patient's presenting symptom of his sepsis was intractable back discomfort. With treatment of his sepsis, his pain has returned to his baseline. The patient will be discharged to rehabilitation with Ettrick as needed. Once he resolves his underlying bacteremia/sepsis, surgical intervention may be warranted. 7. Hypertension-the patient's blood pressure remained reasonably controlled while hospitalized with Cardizem alone. At home, he also is treated with lisinopril and hydrochlorothiazide. This has been held while hospitalized. As he continues to recover, we may need to consider resuming intervention. 8. Profound weakness-the patient was admitted with profound weakness, likely a consequence of his acute illness. I suspect with physical therapy, he will achieve improvement to his baseline. He has shown improvement while hospitalized; however, not to goal. 9. Volume overload-while hospitalized, the patient did develop mild volume overload. This likely was a consequence of aggressive volume resuscitation in the setting of sepsis. He was treated with as needed Lasix in the latter part of his hospitalization. At the time of discharge, he continues to have 1+ lower extremity edema. At this point, we will hold off on any scheduled diuretic intervention as he did develop some muscle cramping overnight. We will follow this. 10. Hypokalemia-the patient was treated with replacement intermittently while hospitalized. At the time of discharge, potassium was acceptable. DISCHARGE CONDITION: Stable. DISPOSITION: Discharged to rehabilitation. MEDICATIONS: 1. Acetaminophen 650 mg every 6 hours as needed. 2. Eliquis 5 mg twice daily. 3. Aspirin 81 mg daily. 4. Digoxin 125 mcg daily. 5. Diltiazem CD 240 mg twice daily. 6. Ettrick 7.5/325 one tablet every 4 hours as needed. 7. Atrovent 0.5 mg every 4 hours while awake. 8. Levalbuterol 1.25 mg every 4 hours while awake. 9. Calmoseptine ointment as needed. 10. MiraLAX 17 g in 8 ounces of juice twice daily as needed. 11. Nafcillin 2 g IV q.4 hours for a total of 23 additional days. FOLLOWUP: The patient is to follow up with me upon discharge from rehabilitation. The patient is to follow up with Dr. Ely upon discharge from rehabilitation. cc: Rodrigo Welsh MD
[2018-08-14 11:04] VITALS: BP 129/73
[2018-08-14] MEDS: NORCO-7.5 PO PRN (12:59)
[2018-08-15] MEDS ORDERED: CARDIZEM CD PO SCH (09:00)
--- NOTE | 2018-08-15 17:58 | Extremity Venous Study ---
PROCEDURE NAME: Venous U/S Right Arm - 08/14/2018 REFERRING PHYSICIAN: Dr. Rodrigo Welsh. READING PHYSICIAN: Dr. Nails. MANAGER ASSURANCE: Roly. INDICATION: Right arm swelling. FINDINGS: The deep and superficial veins of the right upper extremity were imaged throughout their course, they are compressible, patent, without thrombus. INTERPRETATION: No DVT or SVT of the right upper extremity. cc: MD Rodrigo Adamson MD
== END 2018-08-14 14:19 | DRG 871 ==
LOC: SUPCPDRO → ED 09:18 → EDIPHOLD 12:33 → ICU 14:41 → 3S 08-06 18:28
PROVIDERS: ADMIT Internal Medicine; ATTEND Internal Medicine
CPT/HCPCS: 36569; 71010; 71045; 71250; 74176; 80048; 80053; 80076; 81001; 82784; 83605; 83735; 83880; 84439; 84484; 85025; 85610; 85730; 87040; 87077; 87186; 93005; 93010; 93306; 93312; 93971; 94640; 94760; 94761; 94799; 96361; 96365; 96372; 96375; 97162; 97165; 97530; 97535; 99285; A9270; J0456; J0696; J1561; J1885; J1940; J1956; J2270; J2405; J2543; J3370; J3480; J7030; J7040; J7050; S0032